=== PATIENT | female | born 1980 | race African-American/Black ===

== ENCOUNTER 2023-03-02 13:37 | Emergency (ER) | payer OTHER, SELFPAY ==
[2023-03-02 13:58] VITALS: BP 160/100; PULSE 94; RESP 20; TEMP 36.6; O2SAT 100
--- NOTE | 2023-03-02 14:56 | ED.FEMALEGU ---
HPI - Female Genitourinary General Chief complaint: Urogenital-Female Stated complaint: burning upon urination, flank pain Time Seen by Provider: 03/02/23 14:54 Source: patient Mode of arrival: ambulatory Limitations: no limitations History of Present Illness HPI Narrative: Patient is a 42 year old [id number] (miscarriage)-2 female who presents initially with report of dysuria and flank pain at triage but whom, upon beign roomed, states these are not her symptoms. She was recently treated for a yeast infection and BV, daignosed 2 weeks ago and seen by her ObGyn Dr Munoz. She completed PO metronidazole o nMonday. She attempted to insert Monostat last evening due to vulvar iching and burning however it was too painful and swollen. She denies any vaginal bleeding, vaginal discharge, history of STIs, abdominal pain. LBM was this morning; borderline constipation. She is sexually active with the same male partner of 23 years. She notes that the swelling of her mons pubis and vulva has led to a discharge. No new soaps/creams/underwear; does not douche. Related Data Home Medications Medication Instructions Recorded Confirmed amlodipine 10 mg tablet mg PO 02/03/23 02/03/23 Allergies Allergy/AdvReac Type Severity Reaction Status Date / Time banana Allergy Severe Anaphylactic Verified 03/02/23 14:17 Shock shrimp Allergy Severe Anaphylactic Verified 03/02/23 14:17 Shock PMFSH Past Medical History Medical History Asthma Bacterial vaginosis HTN (hypertension) Migraine Yeast infection Surgical History Surgical History History of Social History Social History (Updated 03/03/23 @ 02:07 by Vernell Grady MD) Smoking status: Never smoker Alcohol intake: current Alcohol use details: occasional Substance use: never Lack of Transportation: No Lack of Food: Never True Current Housing: I Have Housing Concerned About Future Housing: No Difficulty Paying Gas/Electric Bills: No Difficulty Paying for Meds: No Currently Unemployed: No Education: Trade/Vocational Certificate Difficulty w/ Childcare or Family Care: No Living arrangements: with family Additional living arrangements comments: male partner; 2 living children Occupation/Education: occupation Gender identity (if verbalized by the patient): Female Exam Narrative: GENERAL: Well-appearing, well-nourished, and in no acute distress. HEAD: Normocephalic, atraumatic. EYES: Non injected, non icteric ENT: Nares clear, no rhinorrhea or epistaxis. NECK: Supple. CHEST: Speakign in full sentences. No respiratory distress. HEART: Regular rate and rhythm. . ABDOMEN: Soft, nondistended. : swelling of mons pubis without erythea. External genitalia appears markedly swollen, right labia majora greater than left but both erythematous and edeamtous without distinct induration. No distinct cyst/lesion (does not remain in Bartholin gland territory). Vaginal vault swollen as well such that insertion of small speculum causes great discomfort. Bimanual attempted but unable to feel to cervix without causing discomfort. No vaginal discharge appreciated. No lesions/vesicles. EXTREMITIES: Normal range of motion. No edema. SKIN: Warm, dry, no rash. NEURO: No focal deficits. Alert and oriented x3. PSYCH: Normal mood and affect. Course Vital Signs Vital signs: Vital Signs Temperature 97.9 F 03/02/23 13:58 Pulse Rate 94 03/02/23 13:58 Respiratory Rate 20 03/02/23 13:58 Blood Pressure 160/100 H 03/02/23 13:58 Pulse Oximetry 100 03/02/23 13:58 Oxygen Delivery Room Air 03/02/23 13:58 Temperature 97.6 F 03/02/23 16:27 Pulse Rate 87 03/02/23 16:27 Respiratory Rate 18 03/02/23 16:27 Blood Pressure 139/78 03/02/23 16:27 Pulse Oximetry 97 03/02/23 16:27 Oxygen Delivery Room Air
[2023-03-02 15:48] LABS: Add Urine Microscopic? YES; Appearance Urine Cloudy (Clear); Bacteria Urine 2+ /hpf; Bilirubin Urine Negative (Negative); Blood Urine 2+ (Negative); Color Urine Dark Yellow (Yellow); Glucose Urine UA Negative (Negative); Ketones Urine Trace mg/dL (Negative); Leukocyte Esterase Ur 1+ LEU/UL (Negative); Need Manual Microscopic Reviewed; Nitrate Urine Negative (Negative); Protein Urine 1+ mg/dL (Negative); Specific Grav Ur 1.025 (1.001-1.035); Squamous Epithelial Cell Urine Many /hpf (Few)
[2023-03-02] MEDS: SULFAMETHOXAZOLE/TRIMETHOPRIM 800/160 MG DS TABLET 1 TAB PO (16:07)
[2023-03-02 16:27] VITALS: BP 139/78; PULSE 87; RESP 18; TEMP 36.4; O2SAT 97
== END 2023-03-02 16:30 | disposition home or self-care (01) ==
PROVIDERS: Physician Assistant; Emergency Provider Student in an Organized Health Care Education/Training Program
DX: N76.0 Acute vaginitis (principal); N39.0 Urinary tract infection, site not specified; I10 Essential (primary) hypertension
CPT/HCPCS: 81001; 81025; 87086; 87088; 99284; A9270

== ENCOUNTER 2023-03-13 08:37 | Emergency (ER) | payer OTHER, SELFPAY ==
[2023-03-13 08:40] VITALS: BP 151/94; PULSE 85; RESP 16; TEMP 36.4; O2SAT 100
[2023-03-13 08:48] LABS: Glucose Point of Care 85 mg/dl (65-105)
--- NOTE | 2023-03-13 11:40 | ED.GENADULT ---
HPI - General Adult General Chief complaint: Recheck/Abnormal Lab/Rx Stated complaint: mult. complaints, thinks she might be diabetic Time Seen by Provider: 03/13/23 11:31 History of Present Illness HPI narrative: Patient is a 42-year-old female who presents to the emergency department this morning due to concern for new onset diabetes. Patient states that she has been having some itching to her bilateral lower extremity and wants to be evaluated for diabetes since her mother is a diabetic and has similar symptoms. Patient also states that she has been having recurrent yeast infections which she believes is a sign of diabetes despite being treated for it multiple times. Patient states that she made an appointment with her primary care physician, however, her appointment is not until April. Patient denies any chest pain, shortness of breath, nausea, vomiting, abdominal pain, dysuria, hematuria, constipation, diarrhea, melena, hematochezia, fevers or chills. Patient also denies any headaches, dizziness, lightheadedness, blurry visions and focal weakness. There are no other modifying, alleviating, or precipitating factors at this time. Related Data Home Medications Medication Instructions Recorded Confirmed amlodipine 10 mg tablet mg PO 02/03/23 02/03/23 Allergies Allergy/AdvReac Type Severity Reaction Status Date / Time banana Allergy Severe Anaphylactic Verified 03/02/23 14:17 Shock shrimp Allergy Severe Anaphylactic Verified 03/02/23 14:17 Shock Review of Systems Review of Systems: All systems are reviewed and are negative unless stated otherwise in the HPI. [facility] Past Medical History Medical History Asthma Bacterial vaginosis HTN (hypertension) Migraine Yeast infection Surgical History Surgical History History of Social History Social History Smoking status: Never smoker Alcohol intake: current Alcohol use details: occasional Substance use: never Lack of Transportation: No Lack of Food: Never True Current Housing: I Have Housing Concerned About Future Housing: No Difficulty Paying Gas/Electric Bills: No Difficulty Paying for Meds: No Currently Unemployed: No Education: Trade/Vocational Certificate Difficulty w/ Childcare or Family Care: No Living arrangements: with family Additional living arrangements comments: male partner; 2 living children Occupation/Education: occupation Gender identity (if verbalized by the patient): Female Exam Narrative: General: Alert, awake, afebrile, in no acute distress. HEENT: PERRL, no rhinorrhea, no post nasal drip, oropharynx clear. Neck: Trachea midline, no JVD, no lymphadenopathy. Cardiovascular: Regular rate and rhythm, no murmurs, rubs or gallops, no peripheral edema. Respiratory: Clear to auscultation bilaterally, no tachypnea, no wheezing, no rhonchi, no rubs, no respiratory distress. Abdomen: Soft, nontender, nondistended, no rebound, no guarding, no peritoneal signs. Musculoskeletal: No joint swelling or deformity, normal muscle tone. Skin: No rashes or petechia, no signs of infection. Psychiatric: Alert and oriented, normal behavior and judgment for situation. Neurological: Alert and oriented to person, place, and time. Follows all commands. No focal deficits, speech is clear and fluent. Course Vital Signs Vital signs: Vital Signs Temperature 97.6 F 03/13/23 08:40 Pulse Rate 85 03/13/23 08:40 Respiratory Rate 16 03/13/23 08:40 Blood Pressure 151/94 H 03/13/23 08:40 Pulse Oximetry 100 03/13/23 08:40 Temperature 97.6 F 03/13/23 08:40 Pulse Rate 85 03/13/23 08:40 Respiratory Rate 16 03/13/23 08:40 Blood Pressure 151/94 H 03/13/23 08:40 Pulse Oximetry 100 03/13/23 08:40 Medical Decision Renée
[2023-03-13 11:46] LABS: Basophils Absolute Auto 0.1 K/mm3 (0.0-0.1); Eosinophils Absolute Auto 0.2 K/mm3 (0-0.3); Eosinophils Percent Auto 3.6 % (0-4.4); Hematocrit 41.8 % (37.0-47.0); Hemoglobin 13.5 g/dL (12.0-15.0); Immature Granulocyte Absolute 0.01 K/mm3 (0.00-0.031); Immature Granulocyte Percent A 0.2 % (0-0.5); Lymphocytes Percent Auto 45.4 % (18.3-44.2); Mean Corpuscular HGB Conc 32.3 g/dl (32-36); Mean Corpuscular Hemoglobin 30.4 pg (26-34); Mean Corpuscular Volume 94.1 fl (80-100); Mean Platelet Volume 8.9 fl (7.4-10.4); Monocytes Absolute Auto 0.2 K/mm3 (0.1-0.6); Monocytes Percent Auto 4.5 % (2.6-8.5); Neutrophils Absolute Auto 2.3 K/mm3 (1.3-6.7); Neutrophils Percent Auto 45.3 % (45.5-73.1); Platelet Count Result 326 k/mm3 (150-375); Red Blood Count 4.44 M/mm3 (4.2-5.4); Red Cell Distribution Width 11.9 % (11.5-14.5); White Blood Count 5.1 K/mm3 (4.5-10.0)
[2023-03-13 11:59] LABS: Alanine Aminotransferase 21 U/L (6-35); Albumin Level 4.2 g/dL (3.5-5.1); Alkaline Phosphatase 97 U/L (38-126); Anion Gap 8 mmol/L (8-16); Aspartate Amino Transferase 25 U/L (14-36); Bilirubin,Total 0.5 mg/dL (0.2-1.3); Blood Urea Nitrogen 6 mg/dL (7-17); Carbon Dioxide 26 mmol/L (22-30); Chloride 105 mmol/L (98-107); Estimated CRCL calculation 134 ml/min; Estimated Glomerular Filt Rate > 60; Glucose 83 mg/dL (65-110); Magnesium 1.9 mg/dL (1.6-2.3); Potassium 4.1 mmol/L (3.4-5.0); Sodium 139 mmol/L (137-145)
[2023-03-13 13:08] LABS: Hemoglobin A1C 5.8 % (<5.7)
== END 2023-03-13 13:45 | disposition home or self-care (01) ==
PROVIDERS: Emergency Provider Emergency Medicine
DX: R73.03 Prediabetes (principal); B37.31 Acute candidiasis of vulva and vagina; I10 Essential (primary) hypertension; J45.909 Unspecified asthma, uncomplicated
CPT/HCPCS: 36415; 80053; 82948; 83036; 83735; 85025; 99283

== ENCOUNTER 2023-04-09 08:48 | Emergency (ER) | payer OTHER, SELFPAY ==
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
[2023-04-09 09:00] VITALS: BP 148/99; PULSE 80; RESP 16; TEMP 36.6; O2SAT 100
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
[2023-04-09 10:11] LABS: Basophils Percent Auto 0.6 % (0.2-1.2); Eosinophils Absolute Auto 0.2 K/mm3 (0-0.3); Eosinophils Percent Auto 3.2 % (0-4.4); Hematocrit 45.5 % (37.0-47.0); Hemoglobin 14.5 g/dL (12.0-15.0); Immature Granulocyte Absolute 0.02 K/mm3 (0.00-0.031); Immature Granulocyte Percent A 0.3 % (0-0.5); Lymphocytes Absolute Auto 2.02 K/mm3 (0.9-3.2); Lymphocytes Percent Auto 28.3 % (18.3-44.2); Mean Corpuscular HGB Conc 31.9 g/dl (32-36); Mean Corpuscular Volume 94.2 fl (80-100); Mean Platelet Volume 9.1 fl (7.4-10.4); Monocytes Absolute Auto 0.3 K/mm3 (0.1-0.6); Monocytes Percent Auto 4.6 % (2.6-8.5); Neutrophils Absolute Auto 4.5 K/mm3 (1.3-6.7); Platelet Count Result 335 k/mm3 (150-375); Red Blood Count 4.83 M/mm3 (4.2-5.4); Red Cell Distribution Width 12.3 % (11.5-14.5); White Blood Count 7.1 K/mm3 (4.5-10.0)
[2023-04-09] MEDS: ACETAMINOPHEN 500 MG TABLET 1000 MG PO (10:20)
[2023-04-09] MEDS: CYCLOBENZAPRINE HCL 10 MG TABLET PO (10:21)
[2023-04-09 10:27] LABS: Anion Gap 4 mmol/L (8-16); Blood Urea Nitrogen 7 mg/dL (7-17); Calcium 9.2 mg/dL (8.4-10.2); Carbon Dioxide 27 mmol/L (22-30); Chloride 107 mmol/L (98-107); Estimated CRCL calculation 136 ml/min; Estimated Glomerular Filt Rate > 60; Glucose 98 mg/dL (65-110); Potassium 4.1 mmol/L (3.4-5.0); Sodium 138 mmol/L (137-145)
[2023-04-09 10:30] LABS: SPREG INTERNAL CONTROL Positive; Serum Qual hCG Negative
[2023-04-09 11:10] VITALS: O2SAT 100
[2023-04-09 11:11] VITALS: BP 147/101; O2SAT 100
[2023-04-09 11:12] VITALS: O2SAT 100
[2023-04-09 11:57] VITALS: BP 132/94; PULSE 79; RESP 18; O2SAT 100
== END 2023-04-09 11:59 | disposition home or self-care (01) ==
PROVIDERS: Emergency Provider Physician Assistant
DX: S29.011A Strain of muscle and tendon of front wall of thorax, initial encounter (principal); S70.01XA Contusion of right hip, initial encounter; S39.012A Strain of muscle, fascia and tendon of lower back, initial encounter; K76.9 Liver disease, unspecified; D25.9 Leiomyoma of uterus, unspecified; I10 Essential (primary) hypertension; J45.909 Unspecified asthma, uncomplicated; V43.52XA Car driver injured in collision with other type car in traffic accident, initial encounter
CPT/HCPCS: 36415; 71260; 72128; 72131; 73521; 80048; 84703; 85025; 99284; A9270; Q9967

== ENCOUNTER 2024-05-10 13:29 | Emergency (ER) | payer OTHER, SELFPAY ==
--- NOTE | ~2024-05-10 | CT_ITS ---
CT brain wo con Ordering provider: Jimena Ferris APRN History: 43 years Female with . vision changes . Comparison: None. Technique: CT of the head without contrast. Radiation reduction technique utilized The dose-length product was 605.33 mGy-cm. FINDINGS: BRAIN PARENCHYMA AND CSF SPACES: No midline shift, mass effect or hemorrhage. The brain parenchyma a nd CSF spaces are otherwise normal. VISUALIZED PARANASAL SINUSES: Well aerated. MASTOIDS: Well aerated. BONES: The bones appear intact. SOFT TISSUES: Visualized nasopharynx is normal. Superficial soft tissues are normal. IMPRESSION: No acute intracranial findings. Reviewed, dictated and finalized at location A.
--- NOTE | ~2024-05-10 | XR_ITS ---
XR chest 2V Ordering provider: Emile Webber MD History: 43 years Female with . chest pain, MIDSTERNAL CHEST PAIN . Comparison: October 27, 2018 FINDINGS: MEDIASTINUM: The cardiac silhouette is not enlarged. LUNGS: No infiltrates, effusions or pneumothorax. OTHER: No free air under the diaphragm. Degenerative changes of the spine. IMPRESSION: No acute cardiopulmonary pathology. Reviewed, dictated and finalized at location A.
--- NOTE | 2024-05-10 13:30 | ECG_ITS ---
Test Date: 2024-05-10 13:36:08 Measurements Intervals [place] Rate: 101 P: 34 PA: 142 QRS: 9 QRSD: 85 T: 28 QT: 351 QTc: 456 Interpretive Statements SINUS TACHYCARDIA POSSIBLE LEFT ATRIAL ENLARGEMENT [-0.1mV P WAVE IN V1/V2] No previous ECG available for comparison Electronically Signed On 05-11-2024 16:37:31 CDT by Lana Jackson M.D.
--- NOTE | 2024-05-10 13:43 | ED_ITS ---
HPI - Chest Pain General Chief Complaint: Chest Pain Stated Complaint: chest pain, L eye vision is blurry Time Seen by Provider: 05/10/24 13:40 Focused HPI: Patient is a 42-year-old female who presents to the ER with left eye blurriness and midsternal chest pain. She reports her vision changes began this morning around 8:00 a.m. chest pain started shortly afterwards. Patient endorses a history of asthma and high blood pressure. She reports she work when her symptoms started so the other nurses checked her blood sugar and it was high. Patient denies any headaches, shortness of breath, pain, neck stiffness, recent fevers. GENERAL: Well-appearing, well-nourished, and in no acute distress. HEAD: Normocephalic, atraumatic. CHEST: Clear to auscultation. ?No respiratory distress. HEART: Tachycardia, regular rhythm NEURO: ?Alert and oriented x3. Patient screened in triage and initial orders placed.? ?Additional care and disposition to be based upon?diagnostic testing and treatment. Related Data Home Medications ?Medication ?Instructions ?Recorded ?Confirmed ?Last Taken ?Type amlodipine 10 mg tablet mg PO 02/03/23 07/18/23 Unknown History Allergies Allergy/AdvReac Type Severity Reaction Status Date / Time banana Allergy Severe Anaphylactic Verified 07/18/23 11:04 Shock shrimp Allergy Severe Anaphylactic Verified 07/18/23 11:04 Shock PMFSH Past Medical History Medical History (Updated 05/11/24 @ 11:28 by Jimena Ferris APRN) Encounter for screening examination for sexually transmitted disease Screening mammogram, encounter for Yeast infection Bacterial vaginosis HTN (hypertension) Asthma Migraine Surgical History Surgical History History of Social History Social History (Updated 07/18/23 @ 11:07 by SHAW Meehan) Smoking status: Never smoker Second hand tobacco smoke exposure: Yes Alcohol intake: current Alcohol use details: occasional 1 a month Substance use: never Substance use type: does not use Do You Feel Safe in your Home?: Yes Lack of Transportation: No Lack of Food: Never True Current Housing: I Have Housing Concerned About Future Housing: No Difficulty Paying Gas/Electric Bills: No Difficulty Paying for Meds: No Currently Unemployed: No Education: Trade/Vocational Certificate Difficulty w/ Childcare or Family Care: No Living arrangements: with family Additional living arrangements comments: male partner; 2 living children Occupation/Education: occupation 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 Gender identity (if verbalized by the patient): Female Sexual Orientation (if Verbalized by the Patient): Straight or Heterosexual Course Vital Signs Vital signs: Vital Signs Temperature 36.6 C 05/10/24 14:26 Pulse Rate 106 H 05/10/24 14:26 Respiratory Rate 20 05/10/24 14:26 Blood Pressure 163/112 H 05/10/24 14:26 Pulse Oximetry 100 05/10/24 14:26 Temperature 36.8 C 05/10/24 17:37 Pulse Rate 84 05/10/24 17:37 Respiratory Rate 18 05/10/24 17:37 Blood Pressure 172/95 H 05/10/24 17:37 Pulse Oximetry 100 05/10/24 17:37 MDM - Chest Pain Lab Data 05/10/24 13:47 05/10/24 13:47 Labs: Lab Results 05/10/24 05/10/24 Range/Units 13:47 13:47 WBC 6.2 (4.5-10.0) K/mm3 RBC 4.62 (4.2-5.4) M/mm3 Hgb 14.3 (12.0-15.0) g/dL Hct 43.2 (37.0-47.0) % MCV 93.5 (80-100) fl MCH 31.0 (26-34) pg MCHC 33.1 (32-36) g/dl RDW 12.7 (11.5-14.5) % Plt Count 332 (150-375) k/mm3 MPV 9.0 (7.4-10.4) fl Immature Gran % (Auto) 0.0 (0-0.5) % Neut % (Auto) 49.3 (45.5-73.1) % Lymph % (Auto) 44.7 H (18.3-44.2) % [place] % (Auto) 3.4 (2.6-8.5) % Eos % (Auto) 2.1 (0-4.4) % Baso % (Auto) 0.5 (0.2-1.2) % Lymph # (Auto) 2.77 (0.9-3.2) K/mm3 [place] # (Auto) 0.2 (0.1-0.6) K/mm3 Eos # (Auto) 0.1 (0-0.3) K/mm3 Baso # (Auto) 0.0 (0.0-0.1) K/mm3 Abs Immat Gran (auto) 0.00 (0.00-0.031) K/mm3 Absolute Neuts (auto) 3.1 (1.3-6.7) K/mm3 Absolute Nucleated RBC 0.000 (0.0-0.012) K/mm3 Nucleated RBC % 0.0 (0.0-0.2) % PT 13.4 (11.1-14.7) Seconds INR 1.0 APTT 23.5 (22.3-36.8) Seconds Sodium 139 (137-145) mmol/L Potassium 3.8 (3.4-5.0) mmol/L Chloride 105 (98-107) mmol/L Carbon Dioxide 24 (22-30) mmol/L Anion Gap 10 (4-12) mmol/L BUN 9 (7-17) mg/dL Creatinine 0.74 (0.7-1.0) mg/dL Estim Creat Clear Calc Not Reportable Estimated GFR > 60 (59 - ) Glucose 135 H (65-110) mg/dL Calcium 9.1 (8.4-10.2) mg/dL Total Bilirubin 0.5 (0.2-1.3) mg/dL AST 28 (14-36) U/L ALT 27 (6-35) U/L Alkaline Phosphatase 103 (38-126) U/L Troponin I < 0.012 (0.000-0.034) ng/mL NT-Pro-B Natriuret Pep < 20 Cancelled (19.9-100) pg/mL Total Protein 8.0 (6.3-8.2) g/dL Albumin 4.4 (3.5-5.1) g/dL Lipase 85 (23-300) U/L Discharge Plan Discharge Clinical Impression: Atypical chest pain Patient Disposition: Elopement After Seen by Prov Patient Language: Mexican Prescriptions: No Action amlodipine 10 mg tablet PO fluconazole 150 mg tablet 150 mg PO Q72H Qty: 2 0RF ibuprofen 800 mg tablet 800 mg PO TID PRN (Reason: pain) Qty: 60 1RF Follow-up/Referrals: UNKNOWN,DOCTOR [Primary Care Provider] -
[2024-05-10 14:02] LABS: Basophils Percent Auto 0.5 % (0.2-1.2); Eosinophils Absolute Auto 0.1 K/mm3 (0-0.3); Eosinophils Percent Auto 2.1 % (0-4.4); Hematocrit 43.2 % (37.0-47.0); Hemoglobin 14.3 g/dL (12.0-15.0); Lymphocytes Absolute Auto 2.77 K/mm3 (0.9-3.2); Lymphocytes Percent Auto 44.7 % (18.3-44.2); Mean Corpuscular HGB Conc 33.1 g/dl (32-36); Mean Corpuscular Volume 93.5 fl (80-100); Monocytes Absolute Auto 0.2 K/mm3 (0.1-0.6); Monocytes Percent Auto 3.4 % (2.6-8.5); Neutrophils Absolute Auto 3.1 K/mm3 (1.3-6.7); Neutrophils Percent Auto 49.3 % (45.5-73.1); Platelet Count Result 332 k/mm3 (150-375); Red Blood Count 4.62 M/mm3 (4.2-5.4); Red Cell Distribution Width 12.7 % (11.5-14.5); White Blood Count 6.2 K/mm3 (4.5-10.0)
[2024-05-10 14:08] LABS: Prothrombin Time 13.4 Seconds (11.1-14.7)
[2024-05-10 14:09] LABS: Partial Thromboplastin Time 23.5 Seconds (22.3-36.8)
[2024-05-10 14:22] LABS: Alanine Aminotransferase 27 U/L (6-35); Albumin Level 4.4 g/dL (3.5-5.1); Alkaline Phosphatase 103 U/L (38-126); Anion Gap 10 mmol/L (4-12); Aspartate Amino Transferase 28 U/L (14-36); Bilirubin,Total 0.5 mg/dL (0.2-1.3); Blood Urea Nitrogen 9 mg/dL (7-17); Calcium 9.1 mg/dL (8.4-10.2); Carbon Dioxide 24 mmol/L (22-30); Chloride 105 mmol/L (98-107); Estimated Glomerular Filt Rate > 60; Glucose 135 mg/dL (65-110); Lipase 85 U/L (23-300); Potassium 3.8 mmol/L (3.4-5.0); Sodium 139 mmol/L (137-145)
[2024-05-10 14:26] VITALS: BP 163/112; PULSE 106; RESP 20; TEMP 36.6; O2SAT 100
[2024-05-10 14:34] LABS: NT Pro B Type Natriuretic Pept < 20 pg/mL (19.9-100); Troponin I < 0.012 ng/mL (0.000-0.034)
--- OUTSIDE RECORDS SUMMARY | 2024-05-10 15:59 | XMS_ITS | Referral Summary ---
Author Organization [facility] Address [address] [place] [address] Care Team Providers Care Hoop Expander Name Role Phone Frank Ly Primary Care Provider + Source Comments [facility]iliates and Associated Physician Practices is amultiple site organization consisting of ambulatory clinics and hospital sitesin [place], [place]. This disclosure is being madepursuant to the Care Everywhere program and may not contain all information available regarding this patient. Last updated 17.[facility] Allergies Active Allergy Reactions Criticality Noted Date Comments Banana Swelling 03/19/2016 Shellfish Allergy Swelling 03/19/2016 Medications * Be aware that medications may not be up to date on this document. Alwaysverify current medications with the patient. Medication Sig Dispensed Refills Start Date End Date Status albuterol HFA (PROVENTIL;VENTOLIN;P ROAIR) 108 (90 BASE) MCG/ACT inhaler Inhale 2 Puffs by mouth every 6 hours as needed Active acetaminophen (TYLENOL) 500 MG tablet Take 1,000 mg by mouth every 4 hours as needed for Pain or Headache Maximum allowable Acetaminophen amount = 4 Grams (4000 mg) / 24 hours. Active calcium carbonate (TUMS) 500 MG chew tablet Take 2 Tabs by mouth as needed for Heartburn Active Vit-Fe Fumarate-FA ( VITAMIN) 28-0.8 MG tablet Take 1 Tab by mouth once daily 30 Tab 11 03/24/2016 Active iron polysaccharides (NIFEREX 150) 150 MG capsule Take 1 Cap by mouth once daily 30 Cap 5 03/24/2016 Active oxyCODONE-acetaminoph en (PERCOCET) 5-325 MG tablet Take 1-2 Tabs by mouth every 4 hours as needed for Pain 60 Tab 03/24/2016 Active ibuprofen (MOTRIN) 600 MG tablet Take 1 Tab by mouth every 6 hours as needed for Pain 60 Tab 2 03/24/2016 Active docusate sodium (COLACE) 100 MG capsule Take 1 Cap by mouth 2 times daily 60 Cap 2 03/24/2016 Active amLODIPine (NORVASC) 5 MG tablet Take 1 Tab by mouth once daily 30 Tab 5 03/24/2016 Active Active Problems Problem Noted Date Diagnosed Date Preeclampsia, severe 03/19/2016 HTN in , chronic 03/19/2016 Poor growth affecting management of mother in third trimester 03/01/2016 Oligohydramnios, antepartum 01/15/2016 Marginal placenta previa 01/15/2016 Encounter for ultrasound to check growth 1 03/13/2015 Asthma 12/13/2015 Obesity affecting in second trimester 12/13/2015 Supervision of high risk in second [facility] 12/13/2015 Encounter for ultrasound 12/12/2015 Uterine leiomyoma 12/12/2015 heart rate non-reassur ing affecting management of mother Status post delivery Immunizations Name Administration Dates Next Due INFLUENZA VACCINE, QUADR. (F LUZONE; FLULAVAL; FLUARIX; AFLURIA QUADRIVALENT; 6MO+), 0.5 ML (IIV4) 03/24/2016 TDAP (7yrs+) 03/24/2016 Social History Tobacco Use Types Packs/Day Years Used Date Smoking Tobacco: Never Alcohol Use Standard Drinks/Week Comments No 0 (1 standard drink = 0.6 oz pur e alcohol) Sex and Gender Information Value Date Recorded Sex Assigned at Not on file Gender Identity Not on file Sexual Orientation Not on file Last Filed Vital Signs Vital Sign Reading Time Taken Comments Blood Pressure 140/78 03/30/2016 8:09 PM PRICING CONSULTANT Pulse 94 03/24/2016 8:30 AM PRICING CONSULTANT Temperature 37.1 C (98.7 F) 03/30/2016 8:03 PM PRICING CONSULTANT Respiratory Rate 18 03/30/2016 8:03 PM PRICING CONSULTANT Oxygen Saturation 100% 03/24/2016 4:35 AM PRICING CONSULTANT Inhaled Oxygen Concentration - - Weight 127.5 kg (281 lb) 03/30/2016 8:03 PM PRICING CONSULTANT Height 162.6 cm (5' 4 ) 03/30/2016 8:03 PM PRICING CONSULTANT Body Mass Index 48.23 03/30/2016 8:03 PM PRICING CONSULTANT Functional Status Functional Status Response Date of Assess ment Is person deaf or have serious hearing difficult y? No 03/30/2016 Is person blind or have serious difficulty seein g? No 03/30/2016 Does person have serious dif ficulty walking/climbing stairs? No 03/30/2016 Does person have difficulty dressing/bathing? No 03/30/2016 Does person have difficulty doing errands alone? No 03/30/2016 Cognitive Status Response Date of Assessm ent Does person have difficulty concentrating/remembering/making decisions? No 03/30/2016 Plan of Treatment Not on file Advance Directives * Full Code (Latest Code Status on File) Date Activated Date Inactivated Comments 03/30/2016 8:23 PM 03/30/2016 11:47 PM * Full Code Date Activated Date Inactivated Comments 03/21/2016 2:31 AM 03/24/2016 5:50 PM * Full Code Date Activated Date Inactivated Comments 03/19/2016 6:57 PM 03/21/2016 2:31 AM * Full Code Date Activated Date Inactivated Comments 03/19/2016 4:48 PM 03/19/2016 6:57 PM Care Teams Hoop Expander Relationship Specialty Start Date End Date Frank Ly [facility] [address] [place] [address] PCP - General Physician [employer] 12/05/15
--- OUTSIDE RECORDS SUMMARY | 2024-05-10 15:59 | XMS_ITS | Patient Health Summary ---
Author Organization [facility] [employer] Address [address] [place] [address] Care Team Providers Care Spiral Binder Name Role Phone Frank Ly Primary Care Provider + Note from [facility],non-owned Affiliates and Associated Physician Practices is amultiple site organization consisting of ambulatory clinics and hospital sitesin [place], [place], [place] and [place]. This disclosure is being madepursuant to the Care Everywhere program and may not contain all information available regarding this patient. Last updated 17.[facility] [employer] Allergies * Banana(Swelling) * Shellfish Allergy(Swelling) Medications * Be aware that medications may not be up to date on this document. Alwaysverify current medications with the patient. * albuterol HFA (PROVENTIL;VENTOLIN;PROAIR) 108 (90 BASE) MCG/ACT inhaler Inhale 2 Puffs by mouth every 6 hours as needed * acetaminophen (TYLENOL) 500 MG tablet Take 1,000 mg by mouth every 4 hours as needed for Pain or Headache Maximum allowable Acetaminophenamount = 4 Grams (4000 mg) / 24 hours. * calcium carbonate (TUMS) 500 MG chew tablet Take 2 Tabs by mouth as needed for Heartburn * Vit-Fe Fumarate-FA ( VITAMIN) 28-0.8 MG tablet(Started 03/24/2016) Take 1 Tab by mouth once daily 11 refills remaining * iron polysaccharides (NIFEREX 150) 150 MG capsule(Started 03/24/2016) Take 1 Cap by mouth once daily 5 refills remaining * oxyCODONE-acetaminophen (PERCOCET) 5-325 MG tablet(Started 03/24/2016) Take 1-2 Tabs by mouth every 4 hours as needed for Pain * ibuprofen (MOTRIN) 600 MG tablet(Started 03/24/2016) Take 1 Tab by mouth every 6 hours as needed for Pain 2 refills remaining * docusate sodium (COLACE) 100 MG capsule(Started 03/24/2016) Take 1 Cap by mouth 2 times daily 2 refills remaining * amLODIPine (NORVASC) 5 MG tablet(Started 03/24/2016) Take 1 Tab by mouth once daily 5 refills remaining Active Problems Problem Noted Date Diagnosed Date Preeclampsia, severe 03/19/2016 HTN in , chronic 03/19/2016 Poor growth affecting management of mother in third trimester 03/01/2016 Oligohydramnios, antepartum 01/15/2016 Marginal placenta previa 01/15/2016 Encounter for ultrasound to check growth 1 03/13/2015 Asthma 12/13/2015 Obesity affecting in second trimester 12/13/2015 Supervision of high risk in second [facility] 12/13/2015 Encounter for ultrasound 12/12/2015 Uterine leiomyoma 12/12/2015 heart rate non-reassur ing affecting management of mother Status post delivery Immunizations * INFLUENZA VACCINE, QUADR. (FLUZONE; FLULAVAL; FLUARIX; AFLURIA QUADRIVALENT; 6MO+), 0.5 ML (IIV4)(Given 03/24/2016) * TDAP (7yrs+)(Given 03/24/2016) Social History Tobacco Use Types Packs/Day Years [...] Comments Blood Pressure 140/78 03/30/2016 8:09 PM DIRECTOR SUPPLY Pulse 94 03/24/2016 8:30 AM DIRECTOR SUPPLY Temperature 37.1 C (98.7 F) 03/30/2016 8:03 PM DIRECTOR SUPPLY Respiratory Rate 18 03/30/2016 8:03 PM DIRECTOR SUPPLY Oxygen Saturation 100% 03/24/2016 4:35 AM DIRECTOR SUPPLY Inhaled Oxygen Concentration - - Weight 127.5 kg (281 lb) 03/30/2016 8:03 PM DIRECTOR SUPPLY Height 162.6 cm (5' 4 ) 03/30/2016 8:03 PM DIRECTOR SUPPLY Body Mass Index 48.23 03/30/2016 8:03 PM DIRECTOR SUPPLY Procedures * CBC W AUTO DIFFERENTIAL(Performed 03/30/2016) Performed for Status post delivery * IMAGING/RADIOLOGY/XRAY RESULTS ORDER(Performed 03/25/2016) * HGB HCT PANEL(Performed 03/24/2016) * TRANSFUSE RED BLOOD CELL LEUKOREDUCED UNIT(S)(Performed 03/23/2016) * NURSING TRANSFUSION INSTRUCTIONS(Performed 03/23/2016) * OBTAIN CONSENT FOR TRANSFUSION(Performed 03/23/2016) * PREPARE RBC LEUKOREDUCED UNIT(Performed 03/23/2016) * CBC W AUTO DIFFERENTIAL(Performed 03/23/2016) * TYPE + SCREEN PANEL(Performed 03/22/2016) * FIBRINOGEN ACTIVITY(Performed 03/22/2016) * PT PTT PANEL(Performed 03/22/2016) * CBC W AUTO DIFFERENTIAL(Performed 03/22/2016) * BASIC METABOLIC PANEL (CALCIUM TOTAL)(Performed 03/21/2016) * HGB HCT PANEL(Performed 03/21/2016) * NEURAXIAL BLOCK(Performed 03/21/2016) * CBC W AUTO DIFFERENTIAL(Performed 03/21/2016) * BLOOD GASES CORD DELMER (ISTAT)(Performed 03/20/2016) * BLOOD GASES CORD ART (ISTAT)(Performed 03/20/2016) * PATHOLOGY TISSUE EXAM (STL)(Performed 03/20/2016) Performed for Diagnosis unknown * CBC W AUTO DIFFERENTIAL(Performed 03/20/2016) * PT PTT PANEL(Performed 03/20/2016) * FIBRINOGEN ACTIVITY(Performed 03/20/2016) * PREPARE RBC LEUKOREDUCED UNIT(Performed 03/20/2016) * IP CONSULT TO NEONATOLOGY(Performed 03/20/2016) * BLOOD TYPE VERIFICATION(Performed 03/19/2016) * TYPE + SCREEN PANEL(Performed 03/19/2016) * CBC W AUTO DIFFERENTIAL(Performed 03/19/2016) Performed for Obesity affecting in second trimester ([facility]) * CHLAMYDIA + GC AMPLIFIED PROBE(Performed 03/19/2016) Performed for Obesity affecting in second trimester ([facility]) * CULTURE STREP B(Performed 03/19/2016) Performed for Obesity affecting in second trimester ([facility]) * URINALYSIS REFLEX MICROSCOPIC REFLEX CULTURE(Performed 03/19/2016) Performed for Obesity affecting in second trimester ([facility]) * PROTEIN CREATININE RATIO URINE RANDOM PNL(Performed 03/19/2016) Performed for Obesity affecting in second trimester ([facility]) * CULTURE URINE(Performed 03/19/2016) Performed for Supervision of high risk in second trimester ([facility]) * COMPREHENSIVE METABOLIC PANEL(Performed 03/19/2016) Performed for Obesity affecting in second trimester ([facility]) * BIOPHYSICAL PROFILE W NST(Performed 03/19/2016) Performed for Poor growth affecting management of mother in third trimester, not applicable or unspecified fetus (HCC), Supervision of high risk in second trimester ([facility]) * SONOGRAM - COMPLETE(Performed 03/01/2016) Performed for Supervision of high risk in second trimester ([facility]), Oligohydramnios, antepartum, second trimester, not applicable or unspecified fetus (HCC), Obesity affecting in second trimester (HCC), Marginal placenta previa (HCC), Uterine leiomyoma, unspecified location * SONOGRAM - COMPLETE(Performed 02/02/2016) Performed for Encounter for ultrasound to check growth ([facility]), Supervision of high risk in second trimester (HCC), Oligohydramnios, antepartum, second trimester, not applicable or unspecified fetus (HCC), Marginal placenta previa (HCC), Obesity affecting in second trimester(HCC), Uterine leiomyoma, unspecified location * SONOGRAM - COMPLETE(Performed 01/12/2016) Performed for Encounter for ultrasound to check growth (HCC), Supervision of high risk in second trimester ([facility]) * SONOGRAM - COMPLETE(Performed 12/13/2015) Performed for Encounter for ultrasound ([facility]), Uterine leiomyoma, unspecified location * SECTION (EMERGENCY) Results * (ABNORMAL) CBC W AUTO DIFFERENTIAL (03/30/2016 9:06 PM DIRECTOR SUPPLY) Only the most recent of6 resultswithin the time period is included. WBC 13.7(H) 4.4 - 10.7 x10E9/L 03/30/2016 9:13 PM DIRECTOR SUPPLY [facility] WBC Corrected x10E9/L 03/30/2016 9:13 PM DIRECTOR SUPPLY [facility] RBC 3.00(L) 3.80 - 5.20 x10E12/L 03/30/2016 9:13 PM DIRECTOR SUPPLY [facility] Hemoglobin 9.2(L) 12.0 - 15.6 gm/dL 03/30/2016 9:13 PM [facility] Hematocrit 27.7(L) 35.9 - 45.5 % 03/30/2016 9:13 PM [facility] MCV 92.3 80.7 - 98.3 fl 03/30/2016 9:13 PM [facility] MCH 30.7 26.7 - 34.0 pg 03/30/2016 9:13 PM [facility] MCHC 33.2 30.8 - 35.9 gm/dL 03/30/2016 9:13 PM [facility] Platelet Count 409 153 - 416 x10E9/L 03/30/2016 9:13 PM [facility] RDW-CV 14.1 12.1 - 14.9 % 03/30/2016 9:13 PM [facility] MPV 8.9(L) 9.4 - 12.9 fl 03/30/2016 9:13 PM [facility] Neutrophils % 71.8 44.0 - 73.0 % 03/30/2016 9:13 PM [facility] Lymphocytes % 20.3 20.0 - 43.0 % 03/30/2016 9:13 PM [facility] Monocytes % 6.2 5.0 - 13.0 % 03/30/2016 9:13 PM [facility] Eosinophils % 1.0 0.0 - 6.0 % 03/30/2016 9:13 PM [facility] Basophils % 0.2 0.0 - 2.0 % 03/30/2016 9:13 PM [facility] Immature Granulocytes 0.5 0 - 1 % 03/30/2016 9:13 PM [facility] Neutrophil Absolute 9.80(H) 2.01 - 7.14 x10E9/L 03/30/2016 9:13 PM [facility] Lymphocytes Absolute 2.77 1.07 - 3.94 x10E9/L 03/30/2016 9:13 PM [facility] Monocytes Absolute 0.85 0.26 - 1.07 x10E9/L 03/30/2016 9:13 PM [facility] Eosinophils Absolute 0.13 0 - 0.47 x10E9/L 03/30/2016 9:13 PM [facility] Basophils Absolute 0.03 0 - 0.08 x10E9/L 03/30/2016 9:13 PM DIRECTOR SUPPLY [facility] Immature Granulocytes Absolute 0.07(H) 0.00 - 0.06 x10E9/L 03/30/2016 9:13 PM DIRECTOR SUPPLY [facility] nRBC Auto 0 /100 WBC 03/30/2016 9:13 PM DIRECTOR SUPPLY [facility] Blood BLOOD SPECIMEN / Unknown Venipuncture / Unknown 03/30/2016 9:06 PM DIRECTOR SUPPLY 03/30/2016 9:09 PM DIRECTOR SUPPLY Faby Sellers MD LAB - HEMATOLOGY ORD ERABLES Performing Organization Address [facility]/ZIP Co de Phone Number [facility] [address] [place] [address] * IMAGING/RADIOLOGY/XRAY RESULTS ORDER (03/25/2016 9:51 PM DIRECTOR SUPPLY) Anatomical Region Laterality Modality Other Narrative 03/25/2016 9:51 PM DIRECTOR SUPPLY Ordered by an unspecified provider. Scanned Document IMAGING * (ABNORMAL) HGB HCT PANEL (03/24/2016 4:36 AM DIRECTOR SUPPLY) Only the most recent of2 resultswithin the time period is included. Hemoglobin 8.6(L) 12.0 - 15.6 gm/dL 03/24/2016 4:59 AM DIRECTOR SUPPLY [facility] Hematocrit 25.3(L) 35.9 - 45.5 % 03/24/2016 4:59 AM [facility] Blood BLOOD SPECIMEN / Unknown Venipuncture / Unknown 03/24/2016 4:36 AM DIRECTOR SUPPLY 03/24/2016 4:46 AM DIRECTOR SUPPLY Mary Hamilton MD LAB - HEMATOLOGY OR DERABLES Performing Organization Address [facility]/ZIP Co de Phone Number [facility] [address] [place] [phone] * TRANSFUSE RED BLOOD CELL UNIT(S) (03/23/2016 11:23 PM DIRECTOR SUPPLY) Noemy Peña MD NURSING - BLOOD PRO D TRANSFUSION * TRANSFUSE RED BLOOD CELL UNIT(S) (03/23/2016 5:48 PM DIRECTOR SUPPLY) Noemy Peña MD NURSING - BLOOD PRO D TRANSFUSION * PREPARE (CROSSMATCH) RBC UNIT(S), 2 Units (03/23/2016 12:00 PM DIRECTOR SUPPLY) Only the most recent of2 resultswithin the time period is included. Product Code P4433R65 [facility] Unit Donor # [id number] S [facility] ABO Donor Type AB [facility] Rh Type Unit POS [facility] Crossmatch Interpretation Compatible [facility] Unit Status Transfd [facility] ABO Rh Type Unit [facility] Donor Unit Expiration Date [facility] Blood Type Barcode [address] [facility] Product Code R3422H64 [facility] Unit Donor # [id number] S [facility] ABO Donor Type AB [facility] Rh Type Unit POS [facility] Crossmatch Interpretation Compatible [facility] Unit Status Transfd [facility] B[facility] OD [facility]ANK LAB ABO Rh Type Unit [facility] Donor Unit Expiration Date [facility] Blood Type Barcode 8400 [facility] Blood Bank BLOOD SPECIMEN / Unknown 03/23/2016 12:00 PM DIRECTOR SUPPLY Noemy Peña MD LAB - BLOOD BANK OR DERABLES [facility] [address] * TYPE + SCREEN PANEL (03/22/2016 1:56 AM DIRECTOR SUPPLY) Only the most recent of2 resultswithin the time period is included. ABO AB 03/22/2016 3:27 AM DIRECTOR SUPPLY [facility] Rh Type Positive 03/22/2016 3:27 AM DIRECTOR SUPPLY [facility] Comment:History check perfor med. No retype required. Antibody Screen Negative 03/22/2016 3:27 AM DIRECTOR SUPPLY [facility] Blood Bank BLOOD SPECIMEN / Unknown Venipuncture / Unknown 03/22/2016 1:56 AM DIRECTOR SUPPLY 03/22/2016 2:01 AM DIRECTOR SUPPLY Sera Juarez MD LAB - BLOOD BANK ORD ERABLES Performing Organization Address [facility]/ZIP Co de Phone Number [facility] [address] [place] [address] * (ABNORMAL) PT PTT PANEL (03/22/2016 1:56 AM DIRECTOR SUPPLY) Only the most recent of2 resultswithin the time period is included. PT <9.5(L) 9.5 - 11.6 sec 03/22/2016 2:19 AM DIRECTOR SUPPLY [facility] INR 0.9 0.9 - 1.1 03/22/2016 2:19 AM [facility] PTT 25.1 21.0 - 32.0 sec 03/22/2016 2:19 AM DIRECTOR SUPPLY [facility] Blood BLOOD SPECIMEN / Unknown Venipuncture / Unknown 03/22/2016 1:56 AM DIRECTOR SUPPLY 03/22/2016 2:01 AM DIRECTOR SUPPLY Narrative [facility] - 03/22/2016 2:19 AM DIRECTOR SUPPLY Conventional Warfarin Anticoagulant Therapy: INR Reference Range: 2.0-3.0 Intensive Warfarin Anticoagulant Therapy: INR Reference Range: 2.5-3.5 Heparin Therapeutic Range for PTT: 47.7 - 68.6 seconds. Imtiaz Fulton MD LAB - COAGULATION OR DERABLES Performing Organization Address [facility] Co de Phone Number [facility] [address] [place] [address] * (ABNORMAL) FIBRINOGEN ACTIVITY (03/22/2016 1:56 AM DIRECTOR SUPPLY) Only the most recent of2 resultswithin the time period is included. Fibrinogen 424(H) 200 - 400 mg/dL 03/22/2016 2:18 AM DIRECTOR SUPPLY [facility] Blood BLOOD SPECIMEN / Unknown Venipuncture / Unknown 03/22/2016 1:56 AM DIRECTOR SUPPLY 03/22/2016 2:01 AM DIRECTOR SUPPLY Imtiaz Fulton MD LAB - COAGULATION OR DERABLES Performing Organization Address [facility] Co de Phone Number [facility] [address] [place] [address] * (ABNORMAL) BASIC METABOLIC PANEL (CALCIUM TOTAL) (03/21/2016 11:38 PM DIRECTOR SUPPLY) Glucose 107(H) 74 - 106 mg/dL 03/22/2016 12:18 AM [facility] Sodium 134(L) 136 - 145 mmol/L 03/22/2016 12:18 AM [facility] Potassium 4.8 3.5 - 5.1 mmol/L 03/22/2016 12:18 AM [facility] Chloride 103 98 - 107 mmol/L 03/22/2016 12:18 AM [facility] CO2 21(L) 22 - 31 mmol/L 03/22/2016 12:18 AM [facility] Calcium 6.6(LL) 8.5 - 10.1 mg/dL 03/22/2016 12:18 AM [facility] Anion Gap 10 8 - 16 mmol/L 03/22/2016 12:18 AM [facility] BUN 14 7 - 21 mg/dL 03/22/2016 12:18 AM [facility] Creatinine 0.91 0.50 - 1.30 mg/dL 03/22/2016 12:18 AM [facility] eGFR by MDRD >60 >60 mL/min/1.7 3m2 03/22/2016 12:18 AM [facility] eGFR by MDRD >60 >60 mL/min/1.7 3m2 03/22/2016 12:18 AM [facility] Blood BLOOD SPECIMEN / Unknown Venipuncture / Unknown 03/21/2016 11:38 PM DIRECTOR SUPPLY 03/21/2016 11:59 PM DIRECTOR SUPPLY Maral Barnes MD LAB - CHEMISTRY TIANA VAZ [facility] ([place], [place]) Organization Address City/State/ZIP Co de Phone Number [facility] [address] [place] [address] * NEURAXIAL BLOCK (03/21/2016 6:37 AM DIRECTOR SUPPLY) Narrative Arturo Mcguire DO - 03/21/2016 6:37 AM DIRECTOR SUPPLY Keyla Martinez APRN-JADA 03/20/2016 10:46 PM NEURAXIAL BLOCK Patient Location: OB Pre Procedure Indication: surgical anesthesia Anticoagulation /Antithrombosis Status Confirmed: Yes Preanesthetic Checklist: patient identified, IV checked, site marked, risks and benefits discussed, surgical consent verified, monitors and equipment checked, pre-op evaluation done, timeout performed, informed consent obtained and questions answered / anesthesia plan accepted Monitors: BP and Pulse Ox Patient Condition: awake Patient Position: sitting Procedure Block Performed: spinal Prep: Betadine Sterile Field: mask, cap/hat, sterile field established and sterile gloves Approach: midline Skin Numbed with: lidocaine 1% Spinal Needle Type: pencil-point Needle Gauge: 25 G Needle Length: 3.5 in Placement Site: L3-4 Number of Attempts: 3 (see below) CSF: free flow, aspiration before injection, aspiration during injection and aspiration after injection Local Anesthetic: bupivacaine 0.75% in dextrose 15 Spinal Additive: PF morphine 0.2 mg fentanyl 10 mcg Events CSF return injection not painful no paresthesia no other event Degree of Difficulty: none Position Post Procedure: left uterine displacement Vital signs monitored and stable throughout. See Anesthesia Intraop record for details. Block Performed by: Dr. 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 X 1 attempt using tuohy 18 g Finding epidural space and long 25 g spinal needle through toughy per Dr. Mcguire FHT 60's prior to SAB completion. Dr. Shin in [place] Arturo Mcguire DO GENERAL ANESTHESIA O RDERABLES * (ABNORMAL) BLOOD GASES CORD DELMER (ISTAT) (03/20/2016 10:43 PM DIRECTOR SUPPLY) pH Cord Venous POCT 7.06(LL) 7.28 - 7.40 pH 03/20/2016 10:56 PM [facility] pCO2 Cord Venous POCT 72(H) 35 - 45 mmHg 03/20/2016 10:56 PM [facility] pO2 Cord Venous POCT 6(L) 22 - 33 mmHg 03/20/2016 10:56 PM [facility] HCO3 Cord Arterial POCT 21(L) 22 - 24 mmol/L 03/20/2016 10:56 PM [facility] BE Cord Venous POCT Calc -12(L) -6.4 - 1.6 mmol/L 03/20/2016 10:56 PM [facility] TCO2 Cord Venous POCT 23 22 - 30 mmol/L 03/20/2016 10:56 PM [facility] O2 Saturation % Cord Venous Calc POCT 3 % 03/20/2016 10:56 PM [facility] Site CORD DELMER 03/20/2016 10:56 PM [facility] Sample iSTAT CORD V 03/20/2016 10:56 PM [facility] Blood CORD BLOOD SPECIMEN / Unknown 03/20/2016 10:43 PM DIRECTOR SUPPLY 03/20/2016 10:56 PM DIRECTOR SUPPLY Brian Lang MD LAB - POINT OF CARE ORDERABLES [facility] [address] [place] [address] * (ABNORMAL) BLOOD GASES CORD ART (ISTAT) (03/20/2016 10:35 PM DIRECTOR SUPPLY) pH Cord Arterial POCT 7.02(LL) 7.20 - 7.34 pH 03/20/2016 10:56 PM [facility] pCO2 Cord Arterial POCT 79.4(HH) 45 - 55 mmHg 03/20/2016 10:56 PM [facility] pO2 Cord Arterial POCT <5(LL) 12 - 25 mmHg 03/20/2016 10:56 PM [facility] HCO3 Cord Arterial POCT 20.7(L) 22 - 24 mmol/L 03/20/2016 10:56 PM [facility] BE Cord Arterial POCT -12(L) -2.9 - 8.3 mmol/L 03/20/2016 10:56 PM [facility] TCO2 Cord Arterial POCT 23 mmol/L 03/20/2016 10:56 PM [facility] O2 Saturation Cord Art % Calc POCT % 03/20/2016 10:56 PM [facility] Site CORD ART 03/20/2016 10:56 PM [facility] Sample iSTAT CORD A 03/20/2016 10:56 PM [facility] Blood CORD BLOOD SPECIMEN / Unknown 03/20/2016 10:35 PM DIRECTOR SUPPLY 03/20/2016 10:56 PM DIRECTOR SUPPLY Brian Lang MD LAB - POINT OF CARE ORDERABLES [facility] [address] [place] [address] * GROSS + MICRO EXAM (STL) (03/20/2016 10:35 PM DIRECTOR SUPPLY) Case Report Surgical Pathology Report Case: [id number] Authorizing Provider: Kary Brunner MD Collected: 03/20/2016 10:35 PM Ordering Location: [facility] Received: 03/22/2016 07:22 AM Pathologist: Grant Reeves MD Specimen: Placenta 03/25/2016 1:43 PM DIRECTOR SUPPLY [facility] Final Diagnosis 1. Placenta, delivery: -- Third trimester placenta, 380 grams -- Three-vessel umbilical cord -- Unremarkable membranes FAUSTINO/merly 03/25/2016 1:43 PM DIRECTOR SUPPLY [facility] Gross Description Received in formalin in a container labeled Weston Ross, placenta. The container holds a 380 gram, 17.5 x 14.8 x 3.5 cm flores discoid placenta with attached membranes and umbilical cord. The membranes rupture marginally and are caban, semitransparent. The umbilical cord inserts eccentrically 4.5 cm from the placental disc margin and measures 8.5 cm in length and up to 1.5 cm in diameter. The umbilical cord contains three vessels. The surface is purple-caban. The vessels arborize in a normal pattern and are unremarkable. The maternal surface has well developed intact lobular cotyledons. Serial sections show red-brown parenchyma. There is an orange-caban firm area of thickening grossly consistent with an infarct measuring 1 x 0.7 x 0.5 cm. The infarct occupies less than 5% of the total placental parenchyma. Brake Drum Lathe Operator sections are submitted as follows: A1 - Membranes and umbilical cord A2 - and maternal surface A3 - Maternal surface DYT/dak 03/25/2016 1:43 PM DIRECTOR SUPPLY [facility] Microscopic Description Sections of the umbilical cord show three vessels with no significant pathologic diagnoses. No evidence of vasculitis or funisitis is seen. Sections of the membranes show no significant pathologic diagnoses. No chorioamnionitis is seen. Meconium is not identified. Sections of the placental disc show maturing chorionic villi with no evidence of hemorrhage or infarction. FAUSTINO/merly 03/25/2016 1:43 PM DIRECTOR SUPPLY [facility] Disclaimer All histochemical and/or immunohistochemical results are interpreted with controls that demonstrate appropriate staining reactions before reporting results. Note on use of immunocytochemistry reagents: This test was developed and its performance characteristic determined by [facility], Department of Laboratory Medicine. It has not been cleared or approved by the U.S. Food and Drug Administration (FDA). The FDA has determined that such clearance or approval is not necessary. The test is used for clinical purpose. It should not be regarded as investigational or for research. This laboratory is certified to perform high complexity testing. 03/25/2016 1:43 PM DIRECTOR SUPPLY [facility] Embedded Images 03/25/2016 1:43 PM DIRECTOR SUPPLY [facility] Pathology/Cytolo gy ENTIRE PLACENTA / Unknown 03/20/2016 10:35 PM DIRECTOR SUPPLY 03/22/2016 7:22 AM DIRECTOR SUPPLY Kary Brunner MD LAB - PATHOLOGY/CY TOLOGY ORDERABLES Performing Organization Address City/State/[facility] Co de Phone Number [facility] [address] [place] [address] * IP CONSULT TO NEONATOLOGY (03/20/2016 11:01 AM DIRECTOR SUPPLY) Narrative Procedure Note Tika Everett MD - 03/19/2016 7:19 PM CST Maternal Consult Note Weston Ross 535/01 Today's Date: 03/19/2016 Estimated Gestational Age: 34w0d Estimated Weight: 1577 g Date Requested: 03/19/16 Reason for requesting consultation: Labor induction at 34 weeks due tosevere pre-eclampsia HPI: Ms. Ross is a 35 yo at 34 weeks with likely chronichypertension with now super-imposed pre-eclampsia and IUGR. Patient wasadmitted for IOL due to severe pressures requiring IV medication. Infantalso with BPP of 6/8 at referring facility which improved to 8/8 uponadmission. Plan for corticosteroids, but will not delaydelivery for steroid window. Mother's blood type is AB+ serologiesnegative, GBS pending. JOYCELYN of 04/30/16 Name of male infant: Jorge Alberto Maternal History: OB History Para Term AB TAB SAB Ectopic Multiple Living 3 1 1 1 1 Current Medications: Followed by 0.9% NaCl injection 10 mL, Intracatheter, q8h ampicillin (OMNIPEN) 2,000 mg in 0.9% NaCl 100 mL IVPB, Intravenous,Once ampicillin 1,000 mg in 0.9% NaCl 50 mL IVPB, Intravenous, q4h magnesium sulfate 4 g in 100 mL bolus, Intravenous, BOLUS IV miSOPROStol (CYTOTEC) tablet 25 mcg, Vaginal, Once [COMPLETED] labetalol (NORMODYNE; TRANDATE) injection 20 mg, Intravenous,Once lactated ringers infusion, Intravenous, Continuous magnesium sulfate 4 g in 100 mL bolus, Intravenous, BOLUS IV magnesium sulfate infusion, Intravenous, Continuous oxytocin (PITOCIN) 30 units in 500 ml normal saline IV solution,Intravenous, CONTINUOUS PRN No current facility-administered medications on file prior to encounter. Current Outpatient Prescriptions on File Prior to Encounter Medication Sig Dispense Refill albuterol HFA (PROVENTIL;VENTOLIN;PROAIR) 108 (90 BASE) MCG/ACT inhalerInhale 2 Puffs by mouth every 6 hours as needed acetaminophen (TYLENOL) 500 MG tablet Take 1,000 mg by mouth every 4hours as needed for Pain or Headache Maximum allowable Acetaminophenamount = 4 Grams (4000 mg) / 24 hours. Vit-Fe Fumarate-FA ( VITAMIN) 28-0.8 MG tablet Take 1Tab by mouth once daily Other medications used during : tums Social History: reports that she has never smoked. She does not have anysmokeless tobacco history on file. She reports that she does not drinkalcohol or use illicit drugs. 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 Recommendations: Briefly discussed adverse outcome risks with 34 wk prematurity with motherat bedside including: RETURN AGENT/development: Discussed effects on feeding ability, poorregulation of temperature and respiratory centers. Small future risk formild developmental delay or learning issues. Recommended earlyintervention services and OT/PT as needed for concerns. Respiratory: Discussed possibility of needing respiratory supportincluding CPAP. steroids may assist lung maturity. Delayed feeding: Possible need for IV nutrition with TPN and delayed GIfeeding. Possible need for gavage feeding by NGT. Recommended earlyexpression of breastmilk. Recommend c/s for additional support. Hyperbilirubinemia: Discussed jaundice requiring phototherapygiven combined risk factors of prematurity, delayed enteric feeds, andpossibility of infection or any condition which may result in newbornhemolysis. Immature Immune system: Discussed risk of sepsis andsusceptibility of infection. Immediate and prolonged hospital stay: Discussed need for ICU care.Discussed possible need for IV lines, umbilical/central lines. General Morbidity and mortality: Reviewed survival data for infants ofcomparable gestational age and birthweight. Impression and plan: 35 yo at 34 wk EGA gestation with deliveryexpected due to maternal conditions. Additional risk factors include IUGR. 1. Introduced above risks and general care, patientunderstood and questions were answered. 2. Mother aware to contact our team with further questions. 3. Plan to provide neonatology support in case of delivery. 4. Discuss with attending for further recommendations. Thank you for the consult, please feel free to contact us for questions. Tika Valero MD INPATIENT CONSULT OR DERABLES * BLOOD TYPE VERIFICATION (03/19/2016 8:21 PM DIRECTOR SUPPLY) ABO AB 03/19/2016 9:30 PM DIRECTOR SUPPLY [facility] Rh Type Positive 03/19/2016 9:30 PM DIRECTOR SUPPLY [facility] Blood Bank BLOOD SPECIMEN / Unknown 03/19/2016 8:21 PM DIRECTOR SUPPLY 03/19/2016 8:57 PM DIRECTOR SUPPLY Brian Lang MD LAB - BLOOD BANK ORD ERABLES [facility] [address] * CHLAMYDIA + GC AMPLIFIED PROBE (03/19/2016 6:23 PM DIRECTOR SUPPLY) Chlamydia Amplified Probe Negative Negative 03/20/2016 9:38 AM DIRECTOR SUPPLY [facility] GC Amplified Probe Negative Negative 03/20/2016 9:38 AM [facility] Microbiology ENTIRE ENDOCERVIX / Unknown Collection / Unknown 03/19/2016 6:23 PM DIRECTOR SUPPLY 03/19/2016 6:28 PM DIRECTOR SUPPLY Narrative [facility] - 03/20/2016 9:38 AM DIRECTOR SUPPLY Results based on detection/no detection of ribosomal RNA by amplified method. Imtiaz Fulton MD LAB - MICROBIOLOGY O SAVANAH [facility] [address] [place] [address], [facility] [phone] * CULTURE STREP B (03/19/2016 6:23 PM DIRECTOR SUPPLY) Culture Negative for beta-hemolytic Streptococcus Group B RUSSELL 03/23/2016 1:34 PM DIRECTOR SUPPLY [facility] Microbiology MISCELLANEOUS SAMPLES / Unknown Collection / Unknown 03/19/2016 6:23 PM DIRECTOR SUPPLY 03/19/2016 6:28 PM DIRECTOR SUPPLY Imtiaz Fulton MD LAB - MICROBIOLOGY O SAVANAH Performing Organization Address [facility] Co de Phone Number [facility] [address] [place] [address], [facility] [phone] * (ABNORMAL) URINALYSIS ROUTINE W/REFLEX TO CULTURE (03/19/2016 5:42 PM DIRECTOR SUPPLY) Color UA Yellow Straw, Yellow, Dark Yellow 03/19/2016 5:58 PM DIRECTOR SUPPLY [facility] Clarity UA Cloudy 03/19/2016 5:58 PM DIRECTOR SUPPLY [facility] Specific [place] UA 1.018 1.005 - 1.030 03/19/2016 5:58 PM DIRECTOR SUPPLY [facility] pH UA 6.0 5.0 - 8.0 pH 03/19/2016 5:58 PM DIRECTOR SUPPLY [facility] Protein UA Trace(A) Negative 03/19/2016 5:58 PM DIRECTOR SUPPLY [facility] Blood UA Negative Negative 03/19/2016 5:58 PM DIRECTOR SUPPLY [facility] Leukocyte UA Negative Negative 03/19/2016 5:58 PM DIRECTOR SUPPLY [facility] Nitrite UA Negative Negative 03/19/2016 5:58 PM DIRECTOR SUPPLY [facility] Glucose UA Negative Negative 03/19/2016 5:58 PM DIRECTOR SUPPLY [facility] Ketone UA Negative Negative 03/19/2016 5:58 PM DIRECTOR SUPPLY [facility] Bilirubin UA Negative Negative 03/19/2016 5:58 PM DIRECTOR SUPPLY [facility] Urobilinogen UA 0.2 0.1 - 1.0 EU/dL 03/19/2016 5:58 PM DIRECTOR SUPPLY [facility] WBC UA Auto 5-10(A) 0-2, 2-5 # /hpf 03/19/2016 5:58 PM DIRECTOR SUPPLY [facility] RBC UA Auto 2-5 0-2, 2-5 # /hpf 03/19/2016 5:58 PM DIRECTOR SUPPLY [facility] Epithelial Cell UA Auto 10-20(A) 0-2, 2-5 # /hpf 03/19/2016 5:58 PM DIRECTOR SUPPLY [facility] Bacteria UA Auto 1+(A) None seen 03/19/2016 5:58 PM DIRECTOR SUPPLY [facility] Hyaline Casts UA Auto 2-5(A) 0 - 2 #/lpf 03/19/2016 5:58 PM DIRECTOR SUPPLY [facility] Reflex Status Culture not indicated 03/19/2016 5:58 PM DIRECTOR SUPPLY [facility] Urine URINE SPECIMEN OBTAINED BY CLEAN CATCH PROCEDURE / Unknown Collection / Unknown 03/19/2016 5:42 PM DIRECTOR SUPPLY 03/19/2016 5:49 PM DIRECTOR SUPPLY Tika Valero MD LAB - URINALYSIS ORD ERABLES Performing Organization Address City/[facility]/ZIP Co de Phone Number [facility] [address] [place] [address] * CULTURE URINE (03/19/2016 5:42 PM DIRECTOR SUPPLY) Culture 10,000-50,000 CFU/mL urogenital tra RUSSELL 03/21/2016 9:10 AM [facility] Urine URINE SPECIMEN OBTAINED BY CLEAN CATCH PROCEDURE / Unknown Collection / Unknown 03/19/2016 5:42 PM DIRECTOR SUPPLY 03/19/2016 5:49 PM DIRECTOR SUPPLY Tika Valero MD LAB - MICROBIOLOGY O RDERABLES [facility] [address] [place], [address] [phone] * PROTEIN CREATININE RATIO URINE RANDOM PNL (03/19/2016 5:42 PM DIRECTOR SUPPLY) Protein Urine 33.0 mg/dL 03/19/2016 6:26 PM DIRECTOR SUPPLY [facility] Creatinine Urine 120 mg/dL 03/19/2016 6:26 PM [facility] Protein/Creatin ine Ratio Urine 0.28 03/19/2016 6:26 PM [facility] Urine URINE SPECIMEN OBTAINED BY CLEAN CATCH PROCEDURE / Unknown Collection / Unknown 03/19/2016 5:42 PM DIRECTOR SUPPLY 03/19/2016 5:49 PM [facility] Tika Valero MD LAB - URINE CHEMISTR Y ORDERABLES [facility] [address] [place] [address] * (ABNORMAL) COMPREHENSIVE METABOLIC PANEL (03/19/2016 5:41 PM [facility]) Glucose 66(L) 74 - 106 mg/dL 03/19/2016 6:12 PM [facility] Sodium 139 136 - 145 mmol/L 03/19/2016 6:12 PM [facility] Potassium 4.3 3.5 - 5.1 mmol/L 03/19/2016 6:12 PM [facility] Chloride 108(H) 98 - 107 mmol/L 03/19/2016 6:12 PM [facility] CO2 22 22 - 31 mmol/L 03/19/2016 6:12 PM [facility] Calcium 9.5 8.5 - 10.1 mg/dL 03/19/2016 6:12 PM [facility] Anion Gap 9 8 - 16 mmol/L 03/19/2016 6:12 PM [facility] BUN 10 7 - 21 mg/dL 03/19/2016 6:12 PM [facility] Creatinine 0.60 0.50 - 1.30 mg/dL 03/19/2016 6:12 PM [facility] Alkaline Phosphatase 341(H) 38 - 126 U/L 03/19/2016 6:12 PM [facility] ALT 12(L) 13 - 61 U/L 03/19/2016 6:12 PM [facility] AST 14 5 - 40 U/L 03/19/2016 6:12 PM [facility] Protein Total 7.0 6.4 - 8.2 gm/dL 03/19/2016 6:12 PM [facility] Albumin 2.7(L) 3.4 - 5.0 gm/dL 03/19/2016 6:12 PM DIRECTOR SUPPLY [facility] Bilirubin Total 0.2 0.2 - 1.0 mg/dL 03/19/2016 6:12 PM DIRECTOR SUPPLY [facility] eGFR by MDRD >60 >60 mL/min/1.7 3m2 03/19/2016 6:12 PM DIRECTOR SUPPLY [facility] eGFR by MDRD >60 >60 mL/min/1.7 3m2 03/19/2016 6:12 PM DIRECTOR SUPPLY [facility] Blood BLOOD SPECIMEN / Unknown Venipuncture / Unknown 03/19/2016 5:41 PM DIRECTOR SUPPLY 03/19/2016 5:49 PM DIRECTOR SUPPLY Tika Valero MD LAB - CHEMISTRY TIANA VAZ [facility] ([place], [place]) Organization Address City/State/ZIP Co de Phone Number [facility] [address] [place] [address] * BIOPHYSICAL PROFILE W NST (03/19/2016 11:48 AM DIRECTOR SUPPLY) Anatomical Region Laterality Modality Other 03/19/2016 11:4 8 AM DIRECTOR SUPPLY Narrative 03/19/2016 1:38 PM [facility] PHONE: FAX: Pat. Name: WESTON ROSS Pat. No: [id number] Study Date: 03/19/2016 11:48am , Age: 04 1980, 35 Pregnancies: 3, Para 1, Ab 1 Height: 64 in Weight: 268 lb LMP: Unknown GA by 1st: 34w1d GA by US: 30w3d GA Selected: 34w1d (From Known E) JOYCELYN: 04/29/2016 Referring MD: Tacho Munoz MD Police Artist: Malia Frederick, RDMS BMI: 46 Hist/Ind: Suspected severe FGR (EFW & AC 3rd %ile on 03/01) Class III obesity Asthma Uterine myomas MEASUREMENTS & AGE GROWTH EVALUATION Measurement GA Range Srce %for GA Ratios ----- ---- ------- BPD 7.9 cm 31w4d ([id number]) Hadl BPD 13% FL/BPD 0.77 (0.71 - 0.87) HC 27.5 cm 30w0d (18o9w-46w5z) Hadl HC <05 FL/AC 0.24 (0.20 - 0.24) AC 25.6 cm 29w5d (25q1a-59e8m) Hadl AC <05 HC/AC 1.07 (0.94 - 1.13) FL 6.0 cm 31w3d (87x5k-42y5r) Hadl FL 9% CI 0.83 (0.70 - 0.86) GA for sonogram 30w3d (69i5i-07g1t) Weight Estimate: based on (BPD,HC,AC,FL) Hadlock Weight: 1577 gm (9155-4603) Hadlo : 3lbs, 7oz Normal: 2408 gm (9339-1396) Hadlo Wt% <10 for 34w1d Heart Rate: 153 bpm Amniotic Fluid Index: 10.7cm (08.1-24.8) Q1: 2.8cm Q2: 2.0cm Q3: 2.7cm Q4: 3.2cm Biophysical Profile: 08/03 Breathin Tone: 2 NST: 0 Movement: 2 AFV: 2 DOPPLER Umbilical - Mid Cord S/D 2.47(1.72 - 3.67) PI 0.91 (0.62 - 1.20) Middle Cerebral Artery PSV Med PSV 49.1cm/s MoM 1.22(<1.5) CLINICAL SUMMARY Study Number: 5 A single fetus is identified in cephalic presentation. The placenta is left lateral. No structural abnormalities were detected on today's limited review of the anatomy. The FHR baseline ranged from 145 to 150 bpm during today's NST. The FHR variability was moderate but the tracing was nonreactive and there was one deceleration down to 130 bpm that lasted 2 minutes. No contractions were recorded. IMPRESSION: 1) Flores gestation, 34w1d 2) Biometry is concerning for severe growth restriction with an AC & EFW <3rd %ile 3) The HC is <5th %ile but <3 standard deviations below the mean (not diagnostic of microcephaly) 4) The amniotic fluid volume is within normal limits. 5) Umbilical Dopplers reveal no evidence of increased arterial resistance 6) MCA Dopplers reveal no evidence of brain sparing (diastolic flow is not increased) 7) Equivocal biophysical profile NOTE: The patient was advised that ultrasound does not allow detection of all structural or chromosomal abnormalities. RECOMMEND: 1) Prolonged FHR monitoring and evaluation for preeclampsia at [facility]. 2) Repeat BPP within 24 hours 3) Repeat Dopplers within 1 week Thank you for allowing us the opportunity to care for your patient. Michelle Sauer MD <Electronic Signature> 03/19/2016 01:38pm Michelle Sauer MD [facility] * SONOGRAM - COMPLETE (03/01/2016 11:15 AM DIRECTOR SUPPLY) Only the most recent of4 resultswithin the time period is included. Anatomical Region Laterality Modality Other 03/01/2016 11:1 5 AM DIRECTOR SUPPLY Narrative 03/01/2016 12:53 PM DIRECTOR SUPPLY [facility] PHONE: FAX: Pat. Name: WESTON ROSS Pat. No: [id number] Study Date: 03/01/2016 11:15am , Age: 04 1980, 35 Pregnancies: 3, Para 1, Ab 1 Height: 64 in Weight: 268 lb LMP: Unknown GA by 1st: 31w4d GA by US: 28w6d GA Selected: 31w4d (From Known E) JOYCELYN: 04/29/2016 Referring MD: Tacho Munoz MD Police Artist: Tesha Gamez RDMS BMI: 46 Hist/Ind: Class III obesity Asthma Uterine myomas Low-lying placenta MEASUREMENTS & AGE GROWTH EVALUATION Measurement GA Range Srce %for GA Ratios ----- ---- ------- BPD 7.7 cm 30w5d (72p5u-79s1d) Hadl BPD 38% FL/BPD 0.76 (0.71 - 0.87) HC 26.6 cm 29w0d (27p1z-83j9a) Hadl HC <05 FL/AC 0.25 (0.20 - 0.24* AC 23.7 cm 28w0d (28w4u-19o1x) Hadl AC <05 HC/AC 1.12 (0.96 - 1.15) FL 5.8 cm 30w3d (74z8y-46j3b) Hadl FL 32% CI 0.86 (0.70 - 0.86* HL 5.1 cm 29w6d (55y9o-57a7c) Jevon HL 21% GA for sonogram 28w6d (96v9j-77y8i) Weight Estimate: based on (HC,AC,FL) Hadlock Weight: 1312 gm (3046-2337) Hadlo : 2lbs, 14oz Normal: 1866 gm (2222-4593) Hadlo Wt% <10 for 31w4d Heart Rate: 141 bpm Amniotic Fluid Index: 13.1cm (08.7-24.0) Q1: 2.6cm Q2: 3.4cm Q3: 3.6cm Q4: 3.5cm Biophysical Profile: 10/01 Breathin Tone: 2 Movement: 2 AFV: 2 DOPPLER Umbilical - Mid Cord S/D 2.58(1.87 - 3.92) PI 0.95 (0.67 - 1.26) CLINICAL SUMMARY Study Number: 4 A flores fetus is identified in cephalic presentation. No structural abnormalities were detected on today's limited review of the anatomy. The FHR baseline was 135 bpm during today's NST. The tracing was nonreactive but the FHR variability was moderate and no decelerations were detected. IMPRESSION: 1) Flores gestation, 31w4d 2) Biometry is concerning for severe growth restriction with a AC & EFW around the 3rd %ile 3) The HC is <5th %ile but <3 standard deviations below the mean (not diagnostic of microcephaly) 4) The amniotic fluid volume is within normal limits. 5) Umbilical Dopplers reveal no evidence of increased arterial resistance 6) Reassuring biophysical profile 7) Transvaginal ultrasound reveals a cervical length of 4.7 cm 8) The left lateral placenta is no longer low-lying NOTE: The patient was advised that ultrasound does not allow detection of all structural or chromosomal abnormalities. RECOMMEND: 1) Close maternal movement monitoring and repeat Dopplers and 10-point BPP in 1 week 2) Repeat growth assessment in 2-3 weeks Thank you for allowing us the opportunity to care for your patient. Michelle Sauer MD <Electronic Signature> 03/01/2016 12:53pm Addis Sears MD [facility] Care Teams Spiral Binder Relationship Specialty Start Date End Date Frank Ly PA [address] [place] [id number] PCP - General Physician Hydrator Operator 12/05/15
--- OUTSIDE RECORDS SUMMARY | 2024-05-10 15:59 | XMS_ITS | Data Portability ---
Author Organization [place] - [facility] OFFICE Address [address] [place] [address] Assessment No assessment recorded. Plan of Treatment Reminders Order Date Submit Date Provider Last Modified By Organization Details Last Modified Time Details Appointments None recorded. Lab None recorded. Referral None recorded. Procedures None recorded. Surgeries None recorded. Imaging electrocar diogram 2018 019 [place] Not available 9 17:25:56 Medication Orders amlodipine 10 mg tablet 2018 019 INTERFACE [id number], [address], [place], [place], [id number], 9 17:02:44 Patient TargetsNo targets recorded. Patient InstructionsNo instructions recorded. Reason for Referral None Reported. Results Created Date Observation Date Name Description Value Unit Range Abnormal Flag Note LastModifiedBy Organization Detail LastModifiedTime 10/30/19 19 07/14/2018 XR, chest No observ ation record ed. [email or web address] Not Available 2018 09:54:54 10/30/19 19 10/28/2018 violet luque am No observ ation record ed. [email or web address] Not Available 2018 09:56:42 11/03/19 19 10/28/2018 stres s echoc ardio gram No observ ation record ed. [facility] (Imaging) [address], [place], [address], 11/03/2018 08:04:22 11/04/19 19 10/28/2018 stres s echoc ardio gram No observ ation record ed. [email or web address] Not Available 2018 11:32:00 11/07/19 19 elect rocar diogr am No observ ation record ed. [email or web address] Michael Malave MD [address], [place], [address], 11/09/2018 09:34:38 11/10/19 19 11/05/2018 elect rocar diogr am No observ ation record ed. [email or web address] Not Available 2018 09:37:19 12/02/19 19 10/28/2018 , echoc ardio gram No observ ation record ed. [email or web address] Not Available 2018 14:29:41 Result Notes None recorded. Problems Name Problem SNOMED Code Status Onset Date Resolution Date Notes Provider Name and Address Organization Details Recorded Time Chest pain 41983332 Active 2018 Samuel Amor null, [place] - [facility] 9 04:31:12 Essential hypertension 56666512 Active 2018 Samuel Amor null, [place] - [facility] 9 04:31:25 Hyperlipidemia 70729869 Active 2018 Hala Zuleyma null, [place] - [facility] 9 04:31:34 Obesity 177748521 Active 2019 Farzana Gallo null, [place] - [facility] 0 13:56:22 Problem Notes None recorded. Procedures Surgical History Date Name Laterality Status Provider Name and Address Organization Details Recorded Time 7 section completed Waleska Mcguire [place] - [facility] 11/05/2018 16:45:17 Imaging Results Imaging Date Name Status LastModified by Organization Details LastModified Time 07/14/2018 XR, chest completed [email or web address] Information no t available 10/30/2018 09:54:54 10/28/2018 electrocardiogram completed [email or web address] Informa tion not available 10/30/2018 09:56:42 10/28/2018 stress echocardiogram completed [facility] ([facility]) [address] [place] [address] [place] [address], [phone], 11/03/2018 08:04:22 10/28/2018 stress echocardiogram completed [email or web address] Information not available 11/03/2018 11:32:00 11/06/2018 electrocardiogram completed [email or web address] Michael Weir MD [address], [place], [address], 11/09/2018 09:34:38 11/05/2018 electrocardiogram completed [email or web address] Informa tion not available 11/09/2018 09:37:19 10/28/2018 US, echocardiogram completed [email or web address] Inform ation not available 12/01/2018 14:29:41 Procedure Notes None recorded. Medical Equipment None Reported. Allergies Allergen ID Allergen Name Allergen Category Reaction Reaction Severity Criticality Documentation Date Start Date Code Code System Note Provider Name and Address Organization Details Recorded Time 8851 banana extract food,medi cation Not available Not available Not available 11/04/2018 87173 9 RxNorm Giovanya Zuleyma [facility] 9 04:31:51 8852 shrimp allergeni c extract food Not available Not available Not available 11/04/2018 82407 2 RxNorm Halericka Amor [facility] 9 04:31:58 Medications Name Sig Start Date Stop Date Status Note LastModified by Organization Details LastModified Time ipratropium 0.5 mg-albutero l 3 mg (2.5 mg base)/3 mL nebulizatio n soln active Not Available Not Available Not Available ibuprofen 800 mg tablet prn active Not Available Not Available Not Available fluconazole 150 mg tablet active Not Available Not Available Not Available metronidazo le 0.75 % (37.5 mg/5 gram) vaginal gel active Not Available Not Available Not Available prednisone 20 mg tablet active Not Available Not Available Not Available rizatriptan 10 mg tablet active Not Available Not Available Not Available amlodipine 5 mg tablet active pt not taking 11/05/18 Not Available Not Available Not Available amlodipine 10 mg tablet Take 1 tablet(s) every day by oral route. active Not Available Not Available No t Available hydrochloro thiazide 25 mg tablet active pt not taking. 11/05/18 Not Available Not Available Not Available albuterol sulfate HFA 90 mcg/actuati on aerosol inhaler Inhale 2 puffs every 4 hours by inhalation route. active Not Available Not Available No t Available fluoxetine 20 mg capsule active Not Available Not Available Not Available Ashlyna 0.15 mg-30 mcg (84)/10 mcg(7) tablets,3 month dose pack active Not Available Not Available Not Available Vitals Date Recorded Body weight Body mass index (BMI) Body height Heart rate Respiratory rate Oxygen saturation Oxygen saturation in Arterial blood by Pulse oximetry Systolic blood pressure Diastolic blood pressure Provider Name and Address Organization Details Last Updated DateTime 9 181502. 46 g 48.2 kg/m2 162.56 cm 86 /min 18 /min 98 % 98 % 128 mm[Hg] 86 mm[Hg] Waleska Maynor [place] - [facility] 9 16:42:45 Social History Question Answer Notes LastModified by Organizat ion Details LastModified Time Tobacco Smoking Status Never Smoker Not Available [facility] 12/28/2019 03:30:42 What Is Your Level Of Alcohol Consumption? None [id number] Information not available 12/28/2019 What Type Of Diet Are You Following? REGULAR [id number] Information not available 12/28/2019 Do You Or Have You Ever Used E-cigarettes Or Vape? Never Used Electronic Cigarettes [id number] Information not available 12/28/2019 Marital Status Single [email or web address] Informatio n not available 11/05/2018 What Was The Date Of Your Most Recent Tobacco Screening? 11/05/2018 [id number] Information not available 12/28/2019 How Many Children Do You Have? 2 [id number] Information not available 12/28/2019 Do You Or Have You Ever Used Smokeless Tobacco? Never Used Smokeless Tobacco [id number] Information not available 12/28/2019 How Much Tobacco Do You Smoke? No [id number] Information not available 12/28/2019 How Many Years Have You Smoked Tobacco? 0 [id number] Information not available 12/28/2019 Sex: Unknown Functional Status None recorded. Mental Status None recorded. Family History Relationship Description Onset Age of this Age Resolved Age Notes LastModified by Organization Details LastModified Time Father Myocardial infarction 43 [email or web address] Not available 11/04 13:27:27 Medical History Condition Response Hyperlipidemia Y Hypertension Y Asthma Y Gynecological HistoryNo gynecological history recorded. Obstetrics History GPAL:G 0 P 0 0 0 0 Past Encounters Encounter ID Performer Location Encounter Start Date Encounter Closed Date Diagnosis/Indication Diagnosis SNOMED-CT Code Diagnosis ICD10 Code Diagnosis Note [id number] Jyoti Rushing [facility] [address] [place] [address] 11/05/2018 16:11:59 11/05/2018 17:03:49 Essential hypertension 38151986 I10 Atypical chest pain 1025 58524 R07.89 Had stress test while admitted at [facility] that was negative for ischemia. Obesity 367825917 E66.9 Weight loss, 20 pounds Exercise advised Health Concerns Section Related Observation LastModified by Organization Detai ls LastModified Time None Recorded Concern Status LastModified by Organization Details LastModified Time None Recorded Advance Directives Directive None Recorded Payers Encounter Date Sequence Insurance Name Policy Number Policy Herrera Covered Member ID Herrera Member ID Guarantor Name 11/05/2018 1 [facility] (MEDICAID HMO) [id number] Weston Herrera [id number] Weston Herrera Notes Date Note Type Note Provider Name and Address Organization Details Recorded Time 11/05/2018 text/html 11/05/18 CC : Chest pain 65 years-old Female with h/o Hypertension and Hyperlipidemia is here for follow up . She was in [facility] in 10/28/18 because of Chest pain . Cardiac enzymes and EKG were negative . Had negative SE done in 10/28/18 with normal LV systolic and diastolic function, EF 65-70% , Results from this visit, or from the past:LIPID 10/28/2018 CH 184 TR 130 LDL 137 HDL 43PT 12.3 INR 0.9BMP 10/27/2018 NA 138 K 3.7 CH 107 CO2 19 GL 159 BUN 7 CR 0.60 CA 8.4 TROP I <0.012 stress Echo 10/28/2018 LV chamber size, wall thickness, systolic and diastolic function are normal with no regional wall motion abnormalities with an estimated EF of 65-70%. Negative stress echo for ischemia by wall wall motion analysis. Normal LVSF with no regional wall motion abnormalities notes at rest. stress echocardiogram 10/28/18 STRESS ECHO: Left ventricular chamber size, wall thickness ,systolic and diastolic function are normal with no regional wall motion abnormalities with an estimated ejection fraction of 65-70%. Negative stress echocardiogram for ischemia by wall motion analysis. Normal left ventricular systolic function with no regional wall motion abnormalities noted at rest. XR chest 07/14/2018 No acute cardiopulmonary disease Jyoti Rushing [facility], [place] - [facility] 11/05/2018 17:03:13 OBGyn Episode No OBEpisode recorded.
--- OUTSIDE RECORDS SUMMARY | 2024-05-10 15:59 | XMS_ITS | Data Portability ---
[facility] Organization [facility] Address [address] [place] [address] Assessment No assessment recorded. Plan of Treatment Reminders Order Date Submit Date Provider Last Modified By Organization Details Last Modified Time Details Appointments NURSE ONLY 2024 09:00A M Светлана Granados MD Not available Not available Not available ANY 30 2024 09:00A M Светлана Garnados MD Not available Not available Not available Lab microalbu min/creat inine, mass ratio, urine 2023 [place], [address], [place], [address], 12/05/2023 10:15:51 BNP (B-type natriuret ic peptide), serum or plasma 2023 024 [place], [address], [place], [address], 12/05/2023 07:15:14 TSH, ultra-sen sitive, serum 2023 024 [place] [facility], [address], [place], [address], 09/04/2023 11:16:21 CMP, serum or plasma 2023 024 [place] [facility], [address], [place], [address], 09/04/2023 11:16:21 albumin/c reatinine , mass ratio, urine 2023 024 [place] [facility], [address], [place], [address], 09/04/2023 11:16:19 CBC 2023 024 [place] [facility], [address], [place], [address], 09/04/2023 11:16:22 lipid panel, serum 2023 024 [place] [facility], [address], [place], [address], 09/04/2023 11:16:20 PPD (purified protein derivativ e), skin test 2023 024 [place] In-Office Order, Internal Use Only DO Not Attach Compendium DO Not Attach Compendium, Do Not Delete/merge, [id number] 04/14/2023 17:34:06 Referral physical therapist referral - left shoulder pain, xray normal, evaluate and treat 2023 024 [facility], [address] [place], [address], 04/10/2024 04:05:41 Procedures None recorded. Surgeries None recorded. Imaging MRI, shoulder, w/o contrast 2024 025 [facility] ([facility]), [address] [place], [address], 05/04/2024 12:50:35 XR, knee [address] [facility] ([facility]), [address] [place], [address], 04/28/2024 14:50:19 [facility] [address] [place], [address], 01/21/2024 14:20:39 Medication Orders amlodipin e 10 mg tablet 2024 025 [facility]07215, [address], [place], [place], [id number], 04/23/2024 11:13:40 hydroxyzi ne HCl 25 mg tablet 2023 [facility] #84098, [address], [place], [place], [id number], 01/08/2024 13:30:44 amlodipin e 10 mg tablet 2023 [facility] #65800, [address], [place], [place], [id number], 12/04/2023 13:09:17 phentermi ne 15 mg capsule 2023 024 [facility] #18823, [address], [place], [place], [id number], 12/04/2023 13:09:17 albuterol sulfate 2.5 mg/3 mL (0.083 %) solution for nebulizat ion 2023 024 [facility] #85060, [address], [place], [place], [id number], 09/03/2023 11:59:54 albuterol sulfate HFA 90 mcg/actua tion aerosol inhaler 2023 [facility] #24351, [address], [place], [place], [id number], 09/03/2023 11:59:53 amlodipin e 10 mg tablet 2023 [facility] #48602, [address], [place], [place], [id number], 09/03/2023 11:59:54 cyclobenz aprine 10 mg tablet 2023 [facility] #08171, [address], [place], [place], [id number], 01/08/2024 13:25:28 Tubersol 5 tub. unit/0.1 mL intraderm al injection solution 2023 [facility] #33093, [address], [place], [place], [id number], 09/03/2023 10:58:59 Patient TargetsNo targets recorded. Patient Instructions Encounter Date Encounter Id Patient Instructions Last Modified By Organization Details Last Modified Time 09/03/2023 [id number] dash diet: care instructions kfarroll Not available 09/03/2023 11:59:39 learning about t he mediterranean diet kfarroll Not available 09/03/2023 11:59:39 Reason for Referral Physical Therapist Referral for Shoulder pain left shoulder pain, xray normal, evaluate and treat Referring Physician: Светлана Granados, Family Medicine, Encounter Date: 01/08/2024 Results Created Date Observation Date Name Description Value Unit Range Abnormal Flag Note LastModifiedBy Organization Detail LastModifiedTime 04/14/1904/14/2023 PPD (danita fied prote in deriv ative ), skin test Result Negati ve Not Available In-Office Order Internal Use Only DO Not Attach Compendium DO Not Attach Compendium, Do Not Delete/merge, [id number] 04/07/2023 17:24:28 07/18/1907/18/2023 pap, IG + CT/NG + HPV + refle x HPV (16+1 8+45) HPV neg Not Available Not Availa ble 01/01/2024 15:53:24 09/03/19 24 09/04/2023 ALBUM IN/CR EATIN INE RATIO ,URIN E creatinine, urine 494.2 mg/dL notest ab. Not Available [facility] ([facility]) [address] [place], [address], 09/04/2023 11:16:19 09/03/19 24 09/04/2023 ALBUM IN/CR EATIN INE RATIO ,URIN E albumin, urine 175.7 ug/mL notest ab. Not Available [facility] ([facility]) [address] [facility], [place], [address], 09/04/2023 11:16:19 09/03/19 24 09/04/2023 ALBUM IN/CR EATIN INE RATIO ,URIN E alb/creat ratio 36 mg/g_ creat 0-29 above high normal Eladia l: 0 - 29 Moder ately incre ased: 30 - 300 Sever rocio incre ased: >300 Not Available [facility] ([facility]) [address] [facility], [place], [address], 09/04/2023 11:16:19 09/03/19 24 09/04/2023 LIPID PANEL cholesterol, total 235 mg/dL 100-19 9 above high normal Not Available [facility] ([facility]) [address] [facility], [place], [address], 09/04/2023 11:16:20 09/03/19 24 09/04/2023 LIPID PANEL triglyceride s 112 mg/dL 0-149 Not Available [facility] ([facility]) [address] [place], [address], 09/04/2023 11:16:20 09/03/19 24 09/04/2023 LIPID PANEL HDL cholesterol 59 mg/dL >39 Not Available [facility] [address] [facility], [place], [address], 09/04/2023 11:16:20 09/03/19 24 09/04/2023 LIPID PANEL VLDL cholesterol timur 20 mg/dL 5-40 Not Available [facility] ([facility]) [address] [facility] [place], [address], 09/04/2023 11:16:20 09/03/19 24 09/04/2023 LIPID PANEL LDL chol calc ([facility]) 156 mg/dL 0-99 above high normal Not Available [facility] ([facility]) [address] [facility] [place], [address], 09/04/2023 11:16:20 09/03/19 24 09/04/2023 COMP. METAB OLIC PANEL (14) glucose 77 mg/dL 70-99 Not Available [facility] ([facility]) [address] [facility] [place], [address], 09/04/2023 11:16:20 09/03/19 24 09/04/2023 COMP. METAB OLIC PANEL (14) BUN 7 mg/dL 6-24 Not Available [facility] ([facility]) [address] [facility] [place], [address], 09/04/2023 11:16:20 09/03/19 24 09/04/2023 COMP. METAB OLIC PANEL (14) creatinine 0.77 mg/dL 0.57-1 .00 Not Available [facility] ([facility]) [address] [facility] [place], [address], 09/04/2023 11:16:20 09/03/19 24 09/04/2023 COMP. METAB OLIC PANEL (14) eGFR 99 mL/mi n/1.7 3 >59 Not Available [facility] ([facility]) [address] [facility] [place], [address], 09/04/2023 11:16:20 09/03/19 24 09/04/2023 COMP. METAB OLIC PANEL (14) BUN/creatini ne ratio 9 9-23 Not Available [facility]) [address] [facility] [place], [address], 09/04/2023 11:16:20 09/03/19 24 09/04/2023 COMP. METAB OLIC PANEL (14) sodium 140 mmol/ L 134-14 4 Not Available [facility] ([facility]) [address] [facility] [place], [address], 09/04/2023 11:16:20 09/03/19 24 09/04/2023 COMP. METAB OLIC PANEL (14) potassium 4.2 mmol/ L 3.5-5. 2 Not Available [facility] ([facility]) [address] [facility] [place], [address], 09/04/2023 11:16:20 09/03/19 24 09/04/2023 COMP. METAB OLIC PANEL (14) chloride 105 mmol/ L 96-106 Not Available [facility] ([facility]) [address] [facility] [place], [address], 09/04/2023 11:16:20 09/03/19 24 09/04/2023 COMP. METAB OLIC PANEL (14) carbon dioxide, total 20 mmol/ L 20-29 Not Available [facility] ([facility]) [address] [facility] [place], [address], 09/04/2023 11:16:20 09/03/19 24 09/04/2023 COMP. METAB OLIC PANEL (14) calcium 9.0 mg/dL 8.7-10 .2 Not Available [facility] ([facility]) [address] [facility] [place], [address], 09/04/2023 11:16:20 09/03/19 24 09/04/2023 COMP. METAB OLIC PANEL (14) protein, total 6.9 g/dL 6.0-8. 5 Not Available [facility] ([facility]) [address] [facility] [place], [address], 09/04/2023 11:16:20 09/03/19 24 09/04/2023 COMP. METAB OLIC PANEL (14) albumin 4.1 g/dL 3.9-4. 9 Not Available [facility] ([facility]) [address] [facility] [place], [address], 09/04/2023 11:16:20 09/03/19 24 09/04/2023 COMP. METAB OLIC PANEL (14) globulin, total 2.8 g/dL 1.5-4. 5 Not Available [facility] ([facility]) [address] [facility] [place], [address], 09/04/2023 11:16:20 09/03/19 24 09/04/2023 COMP. METAB OLIC PANEL (14) bilirubin, total 0.4 mg/dL 0.0-1. 2 Not Available [facility] ([facility]) [address] [facility] [place], [address], 09/04/2023 11:16:20 09/03/19 24 09/04/2023 COMP. METAB OLIC PANEL (14) alkaline phosphatase 100 IU/L 44-121 Not Available [facility] [address] [facility] [place], [address], 09/04/2023 11:16:20 09/03/19 24 09/04/2023 COMP. METAB OLIC PANEL (14) AST (SGOT) 18 IU/L 0-40 Not Available [facility] ([facility]) [address] [facility] [place], [address], 09/04/2023 11:16:20 09/03/19 24 09/04/2023 COMP. METAB OLIC PANEL (14) ALT (SGPT) 15 IU/L 0-32 Not Available [facility] ([facility]) [address] [facility] [place], [address], 09/04/2023 11:16:20 09/03/19 24 09/04/2023 TSH RFX ON ABNOR MAL TO FREE T4 TSH 1.100 uIU/m L 0.450- 4.500 Not Available [facility] ([facility]) [address] [facility], [place], [address], 09/04/2023 11:16:21 09/03/19 24 09/04/2023 CBC, PLATE LET, NO DIFFE RENTI AL WBC 5.1 x10e3 /uL 3.4-10 .8 Not Available [facility] ([facility]) [address] [facility], [place], [address], 09/04/2023 11:16:22 09/03/19 24 09/04/2023 CBC, PLATE LET, NO DIFFE RENTI AL RBC 4.54 x10e6 /uL 3.77-5 .28 Not Available [facility] ([facility]) [address] [facility], [place], [address], 09/04/2023 11:16:22 09/03/19 24 09/04/2023 CBC, PLATE LET, NO DIFFE RENTI AL hemoglobin 13.6 g/dL 11.1-1 5.9 Not Available [facility] ([facility]) [address] [facility], [place], [address], 09/04/2023 11:16:22 09/03/19 24 09/04/2023 CBC, PLATE LET, NO DIFFE RENTI AL hematocrit 42.3 % 34.0-4 6.6 Not Available [facility] ([facility]) [address] [facility], [place], [address], 09/04/2023 11:16:22 09/03/19 24 09/04/2023 CBC, PLATE LET, NO DIFFE RENTI AL MCV 93 fL 79-97 Not Available [facility] ([facility]) [address] [facility], [place], [address], 09/04/2023 11:16:22 09/03/19 24 09/04/2023 CBC, PLATE LET, NO DIFFE RENTI AL MCH 30.0 pg 26.6-3 3.0 Not Available [facility] ([facility]) [address] [facility], [place], [address], 09/04/2023 11:16:22 09/03/19 24 09/04/2023 CBC, PLATE LET, NO DIFFE RENTI AL MCHC 32.2 g/dL 31.5-3 5.7 Not Available [facility] ([facility]) [address] [facility], [place], [address], 09/04/2023 11:16:22 09/03/19 24 09/04/2023 CBC, PLATE LET, NO DIFFE RENTI AL RDW 13.0 % 11.7-1 5.4 Not Available [facility] ([facility]) [address] [facility], [place], [address], 09/04/2023 11:16:22 09/03/19 24 09/04/2023 CBC, PLATE LET, NO DIFFE RENTI AL platelets 307 x10e3 /uL 150-45 0 Not Available [facility] ([facility]) [address] [facility], [place], [address], 09/04/2023 11:16:22 12/04/19 24 12/05/2023 B-TYP E NATRI URETI C PEPTI DE B-type natriuretic peptide 19.2 pg/mL 0.0-10 0.0 Sieme ns ADVIA [facility] XP metho dolog y Not Available [facility] ([facility]) [address] [facility], [place], [address], 12/05/2023 07:15:14 12/04/19 24 12/05/2023 ALBUM IN/CR EAT RATIO , RANDO M UR creatinine, urine 306.8 mg/dL notest ab. Not Available [facility] ([facility]) [address] [place], [address], 12/05/2023 10:15:51 12/04/19 24 12/05/2023 ALBUM IN/CR EAT RATIO , RANDO M UR albumin, urine 74.6 ug/mL notest ab. Not Available [facility] ([facility]) [address] [facility], [place], [address], 12/05/2023 10:15:51 12/04/19 24 12/05/2023 ALBUM IN/CR EAT RATIO , RANDO M UR alb/creat ratio 24 mg/g_ creat 0-29 Eladia l: 0 - 29 Moder ately incre ased: 30 - 300 Sever rocio incre ased: >300 Not Available [facility] ([facility]) [address] [facility], [place], [address], 12/05/2023 10:15:51 12/04/19 24 12/04/2023 micro album in/cr eatin ine, mass ratio , urine albumin/crea tinine ratio, random urine 24 0-29 normal Not Available [facility] [address] [address], [place], [address], 02/23/2024 11:57:54 12/04/19 24 09/05/2023 US, trans vagin al No observ ation record ed. [facility] [address] [place], [address], 12/05/2023 12:26:29 12/04/19 24 09/05/2023 XR, shoul prasanna No observ ation record ed. [facility] [address] [place], [address], 12/09/2023 11:14:17 12/04/19 24 09/05/2023 MAMMO , scree edi, digit al, bilat eral No observ ation record ed. [email or web address] Not Available 2023 15:02:58 Result Notes None recorded. Problems Name Problem SNOMED Code Status Onset Date Resolution Date Notes Provider Name and Address Organization Details Recorded Time Physical examination 4565152 Active 2021 Frank Ly PA-C Attn: Devang g,[address] [facility] [address], [place], [address], [place] [facility] 2 14:59:06 Tuberculosis screening Active 2021 Frank Ly PA-C Attn: Devang kramer,[address] [facility], [place], [address], [place] [facility] 2 14:59:25 Essential hypertension 69309033 Active 2021 Frank Ly PA-C Attn: Devang kramer,[address] [facility], [place], [address], [place] [facility] 2 15:04:25 Under immunized 410902995 Active 2021 Frank Ly PA-C Attn: Devang kramer,[address] [facility], [place], [address], [place] [facility] 2 15:06:39 Obese 321670431 Active 2021 Frank Ly PA-C Attn: Devang kramer,[address] [facility], [place], [address], [place] [facility] 2 15:08:45 Hyperlipidemia 65112010 Active 2021 Frank Ly PA-C Attn: Devang kramer,[address] [facility], [place], [address], [place] [facility] 2 17:04:58 Serum vitamin B12 borderline low 470468835 Active 2021 Frank Ly PA-C Attn: Devang kramer,[address] [facility], [place], [address], [place] [facility] 2 17:08:08 Vitamin D deficiency 01626298 Active 2021 Frank Ly PA-C Attn: Devang kramer,[address] [facility], [place], [address], [place] [facility] 2 17:10:29 Problem Notes None recorded. Procedures Surgical History Date Name Laterality Status Provider Name and Address Organization Details Recorded Time section completed Lavern Delarosa [place] [facility] 09/03/2023 11:00:40 Imaging Results Imaging Date Name Status LastModified by Organization Details LastModified Time 09/05/2023 US, transvaginal completed [facility] [address] [place], [address], 12/05/2023 12:26:29 09/05/2023 XR, shoulder completed [facility] [address] [place], [address], 12/09/2023 11:14:17 09/05/2023 MAMMO, screening, digital, bilateral completed [email or web address] Information not available 12/04/2023 15:02:58 Procedure Notes None recorded. Medical Equipment None Reported. Allergies Allergen ID Allergen Name Allergen Category Reaction Reaction Severity Criticality Documentation Date Start Date Code Code System Note Provider Name and Address Organization Details Recorded Time 292847 banana extract food,medi cation other severe high 07/09/2021 12797 9 RxNorm Not Available Not Available Not Available 420079 shrimp allergeni c extract food other mild high 07/09/2021 99258 2 RxNorm Not Available Not Available Not Available Medications Name Sig Start Date Stop Date Status Note LastModified by Organization Details LastModified Time cyclobenzap rine 10 mg tablet one tab po hs for ten days. Can use bid if well tolerated . Caution on sedation. 01/07 completed Not Available Not Available Not Available medroxyprog esterone 10 mg tablet TAKE 1 TABLET BY MOUTH EVERY DAY FOR 14 DAYS 07/09 completed Not Available Not Available Not Available albuterol sulfate 2.5 mg/3 mL (0.083 %) solution for nebulizatio n USE 1 VIAL IN NEBULIZER FOUR TIMES DAILY NEEDED active Not Available Not Available No t Available ibuprofen 800 mg tablet TAKE 1 TABLET BY MOUTH THREE TIMES DAILY NEEDED FOR PAIN active Not Available Not Available No t Available fluconazole 150 mg tablet TAKE 1 TABLET BY MOUTH EVERY 72 HOURS 01/07 completed Not Available Not Available Not Available Tubersol 5 tub. unit/0.1 mL intradermal injection solution Administe r .1ml interderm ally 09/02 completed Not Available Not Available Not Available phentermine 15 mg capsule TAKE 1 CAPSULE BY MOUTH EVERY DAY active Not Available Not Available No t Available metronidazo le 500 mg tablet TAKE 1 TABLET BY MOUTH EVERY 12 HOURS 09/02 completed Not Available Not Available Not Available sulfamethox azole 800 mg-trimetho prim 160 mg tablet TAKE 1 TABLET BY MOUTH EVERY 12 HOURS 09/02 completed Not Available Not Available Not Available acetaminoph en 500 mg tablet TAKE 1 TABLET BY MOUTH EVERY 6 HOURS NEEDED FOR PAIN 09/02 completed Not Available Not Available Not Available amlodipine 10 mg tablet one tab po q d 2024 active Not Available Not Available Not Avai lable hydrocortis one 1 % topical cream APPLY TOPICALLY THREE TIMES DAILY NEEDED FOR SKIN IRRITATIO N 09/02 completed Not Available Not Available Not Available hydroxyzine HCl 25 mg tablet TAKE 1 TO 2 TABLETS BY MOUTH THREE TIMES DAILY NEEDED. CAN TAKE BEFORE FLYING active Not Available Not Available No t Available cyanocobala min (vit B-12) 1,[address] 1 tablet twice a day by sublingua l route for 30 days. 08/29 completed Not Available Not Available Not Available albuterol sulfate HFA 90 mcg/actuati on aerosol inhaler INHALE 2 PUFFS BY MOUTH FOUR TIMES DAILY NEEDED active Not Available Not Available No t Available naproxen 500 mg tablet TAKE 1 TABLET BY MOUTH TWICE DAILY 09/02 completed Not Available Not Available Not Available amoxicillin 875 mg-potassiu m clavulanate 125 mg tablet TAKE 1 TABLET BY MOUTH TWICE DAILY 09/02 completed Not Available Not Available Not Available ezetimibe 10 mg tablet TAKE 1 TABLET BY MOUTH EVERY DAY IN THE MORNING 01/07 completed Not Available Not Available Not Available chlorhexidi ne gluconate 0.12 % mouthwash TAKE 10ML 2 TIMES VERA AFTER BRUSHING TEETH. SWISH FOR 60 SECONDS AND THEN SPIT 09/02 completed Not Available Not Available Not Available Vitamin D3 01/07 completed Not Available Not Available Not Available cholecalcif soledad (vitamin D3) 50 mcg (2,000 unit) capsule Take 1 capsule every day by oral route with meals for 30 days. 08/29 completed Not Available Not Available Not Available Vitamin D3 125 mcg (5,000 unit) tablet Take by oral route. 09/02 completed Not Available Not Available Not Available Cecily 30 mg tablet TAKE 1 TABLET BY MOUTH FOR 1 DOSE 09/02 completed Not Available Not Available Not Available Meggan 0.25 mg-0.035 mg tablet TAKE 1 TABLET BY MOUTH EVERY DAY 07/09 completed Not Available Not Available Not Available Vitals Date Recorded Body height Provider Name an d Address Organization Details Last Updated DateTime 04/07/2023 160.02 cm Mariposa Barth [facility] 04/07/2023 17:09:30 Date Recorded Body height Body mass index (BMI) Body weight Oxygen saturation Oxygen saturation in Arterial blood by Pulse oximetry Heart rate Respiratory rate Systolic blood pressure Diastolic blood pressure Provider Name and Address Organization Details Last Updated DateTime 4 160.02 cm 50.8 kg/m2 037474. 01 g 98 % 98 % 81 /min 16 /min 124 mm[Hg] 70 mm[Hg] Lavern Delarosa [facility] 4 11:03:20 Date Recorded Body height Body mass index (BMI) Body weight Oxygen saturation Oxygen saturation in Arterial blood by Pulse oximetry Heart rate Systolic blood pressure Diastolic blood pressure Provider Name and Address Organization Details Last Updated DateTime 4 160.02 cm 51.2 kg/m2 235006. 19 g 100 % 100 % 88 /min 122 mm[Hg] 70 mm[Hg] Lavern Delarosa [facility] 4 12:06:02 Date Recorded Body height Body mass index (BMI) Body weight Oxygen saturation Oxygen saturation in Arterial blood by Pulse oximetry Heart rate Systolic blood pressure Diastolic blood pressure Provider Name and Address Organization Details Last Updated DateTime 4 160.02 cm 51.7 kg/m2 963043. 97 g 100 % 100 % 89 /min 122 mm[Hg] 72 mm[Hg] Lavern Delarosa [facility] 4 12:29:47 Date Recorded Body height Body mass index (BMI) Body weight Oxygen saturation Oxygen saturation in Arterial blood by Pulse oximetry Heart rate Body temperature Systolic blood pressure Diastolic blood pressure Provider Name and Address Organization Details Last Updated DateTime 5 160.02 cm 52.4 kg/m2 281578. 34 g 97 % 97 % 78 /min 98.7 [degF] 120 mm[Hg] 72 mm[Hg] Lavern Delarosa [place] 10:10:49 Social History Question Answer Notes LastModified by Organizat ion Details LastModified Time Tobacco Smoking Status Never Smoker Yoanaselena Linn [place] null, [place] - [facility] 07/09/2021 14:48:45 What Is Your Level Of Alcohol Consumption? Occasional Information not available 07/09/2021 Are You Blind Or Do You Have Difficulty Seeing? No Information not available 07/09/2021 What Is Your Level Of Caffeine Consumption? None Information not available 07/09/2021 Are You Currently Employed? Yes Information not available 07/09/2021 Are You Deaf Or Do You Have Serious Difficulty Hearing? No Information not available 07/09/2021 What Type Of Diet Are You Following? 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 04/23/2024 Information not available 04/23/2024 How Many Children Do You Have? -1 Information not available 07/09/2021 Do You Use Protection During Sex? No Information not available 07/09/2021 What Is Your Relationship Status? Single Information not available 07/09/2021 Are You Sexually Active? Yes Information not available 07/09/2021 Do You Have Smoke And Carbon Monoxide Detectors In Your Home? Yes Information not available 07/09/2021 Are You Passively Exposed To Smoke? Yes Information no t available 07/09/2021 Do You Use Any Illicit Or Recreational Drugs? No Information not available 07/09/2021 Has Tobacco Cessation Counseling Been Provided? Yes Information not available 04/23/2024 On What Date Was Tobacco Cessation Counseling Provided? 04/23/2024 Information not available 04/23/2024 Sex: Female Functional Status Question Answer Note LastModified by Organization D etails LastModified Time Are you able to care for yourself? Yes Information not available 07/09/2021 What is your exercise level? Moderate Information not available 07/09/2021 Mental Status None recorded. Family History Nothing Reported. Medical History No medical history recorded. Gynecological HistoryNo gynecological history recorded. Obstetrics History GPAL:G 0 P 0 0 0 0 Immunizations Vaccine Type Date Status Note Provider Nam e and Address Organization Details Recorded Time Influenza, MDCK, trivalent, PF 4 completed Yoana L[place], [place] [facility] 08/29/2022 10:51:02 COVID-19, mRNA, LNP-S, bivalent, PF, 30 mcg/0.3 mL dose 3 completed Yoana L[place] [facility] 09/10/2022 11:09:13 Influenza, split virus, quadrivalent, preservative 2 completed Yoana L[place] [facility] 07/12/2021 14:06:22 Hep A-Hep B 3 completed Yoana L[place] [facility] 09/10/2022 11:01:28 Past Encounters Encounter ID Performer Location Encounter Start Date Encounter Closed Date Diagnosis/Indication Diagnosis SNOMED-CT Code Diagnosis ICD10 Code Diagnosis Note [id number] RAE Kirk (Adult Med) [address] [place] [id number] 07/09/2021 14:32:42 07/10/2021 08:39:50 Tuberculosis screening 332984134 Z11.7 Physical examination 588 0005 Z04.9 Essential hypertension 95747652 I10 Under immunized 03168154 8 Z28.3 Obese 214447279 E66.9 [id number] PADDY Potter (Adult Med) [address] [place] [id number] 0 07/11/2021 16:59:14 07/12/2021 14:40:17 Administration of influenza vaccine 74438478 Z23 [id number] Irma Valdovinos MD [facility] (Adult Med) [address] [place] [id number] 0 08/29/2022 10:47:48 09/02/2022 15:10:59 History and physical examination, pre-employment 471802234 Z02.1 Her previous Titers of MMR and varicella are immune. Pending titer of tetanus and TB lab. Just been drawn today. Can not do skin TB test today , it is which requires patient to be back in 48 hours. Morbid obesity 700467760 E66.01 Advised her to watch her diet, exercise and keep the weight down. 08-29-22. [id number] Yoana Linn MA [facility] (Adult Med) [address] [place] [phone] 0 09/10/2022 10:42:36 09/11/2022 14:39:22 Requires course of hepatitis B vaccination 827903832 Z28.39 Blood test indicates she is not immune. patient informed. 0,1 and 6 months shots. patient informed. [id number] Irma Valdovinos MD [facility] (Adult Med) [address] [place] [phone] 0 04/07/2023 16:57:07 04/08/2023 13:47:00 Tuberculosis screening 418063773 Z11.1 [id number] Светлана Granados MD [facility] (Adult Med) [address] [place] [id number] 0 09/03/2023 10:47:03 09/04/2023 12:56:03 Essential hypertension 87118030 I10 Blood pressure good. Continue present medication . Will get fasting blood work and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
--- OUTSIDE RECORDS SUMMARY | 2024-05-10 15:59 | XMS_ITS | CONTINUITY OF CARE DOCUMENT ---
Author Name kenyetta kumari Address Unknown Organization [facility] Address [address] [place] [address] Phone [phone] Care Team Providers Care Tap Grinder Name Role Phone Tanner Shepard MD Unavailable Tanner Shepard MD Unavailable [phone] INSURANCE PROVIDERS Payer name Policy type / Coverage type [employer] red green party ID [employer] MEDICAID Medicaid [id number]
--- OUTSIDE RECORDS SUMMARY | 2024-05-10 15:59 | XMS_ITS | Clinical Summary ---
Author Organization [facility] [employer] Address [address] [place] [address] Care Team Providers Care Cutting Tool Sharpener Name Role Phone Frank Ly Primary Care Provider + Source Comments [facility] [employer],non-owned Affiliates and Associated Physician Practices is amultiple site organization consisting of ambulatory clinics and hospital sitesin [place] and [place]. This disclosure is being madepursuant to the Care Everywhere program and may not contain all information available regarding this patient. Last updated 17.[facility] [employer] Allergies Active Allergy Reactions Criticality Noted Date [...] 12/13/2015 Supervision of high risk in second [facility] 12/13/2015 Encounter for ultrasound 12/12/2015 Uterine leiomyoma [...] Comments Blood Pressure 140/78 03/30/2016 8:09 PM BATTERBOARD SETTER Pulse 94 03/24/2016 8:30 AM BATTERBOARD SETTER Temperature 37.1 C (98.7 F) 03/30/2016 8:03 PM BATTERBOARD SETTER Respiratory Rate 18 03/30/2016 8:03 PM BATTERBOARD SETTER Oxygen Saturation 100% 03/24/2016 4:35 AM BATTERBOARD SETTER Inhaled Oxygen Concentration - - Weight 127.5 kg (281 lb) 03/30/2016 8:03 PM BATTERBOARD SETTER Height 162.6 cm (5' 4 ) 03/30/2016 8:03 PM BATTERBOARD SETTER Body Mass Index 48.23 03/30/2016 8:03 PM BATTERBOARD SETTER Plan of Treatment Health Maintenance Due Date Last Done Comments LIPID TESTING 1982 MAMMOGRAM 1982 PAP SMEAR 1982 HIV SCREENING 1997 HEPATITIS C SCREENING 06/06/2000 HEPATITIS B VACCINE (1 of 3 - 19+ 3-dose series) 2001 COVID-19 VACCINE (2023-2 5 season) 2023 INFLUENZA VACCINE (#1) 2023 03/24/2016 DEPRESSION SCREENING 02/25/2024 DTAP/TDAP/TD VACCINES (2 - T d or Tdap) 03/24/2026 03/24/2016 ZOSTER VACCINE (1 of 2) 2032 HIB VACCINE Aged Out No longer eligi ble based on patient's age to complete this topic HPV VACCINE Aged Out No longer eligi ble based on patient's age to complete this topic MENINGOCOCCAL (Group B) VACC INE SHARED DECISION-MAKING Aged Out No longer eligibl e based on patient's age to complete this topic MENINGOCOCCAL GROUPS A/C/Y/W VACCINE Aged Out No longer eligible b ased on patient's age to complete this topic PNEUMOCOCCAL VACCINE Aged Out No long er eligible based on patient's age to complete this topic Advance Directives * Full Code (Latest Code [...] 4:48 PM 03/19/2016 6:57 PM Care Teams Cutting Tool Sharpener Relationship Specialty Start Date End Date Frank Ly PA [address] [place] [address] PCP - General Physician Switchgear Repairer 12/05/15
--- OUTSIDE RECORDS SUMMARY | 2024-05-10 17:17 | XMS_ITS | Referral Summary ---
Author Organization [facility] [employer] Address [address] [place] [address] Care Team Providers Care Pump Servicer Supervisor Name Role Phone Frank Ly Primary Care Provider + Source Comments [facility] [employer],non-[facility] Affiliates and Associated Physician Practices is amultiple site organization consisting of ambulatory clinics and hospital sitesin [place], [place], [place] and [place]. This disclosure is being madepursuant to the Care Everywhere program and may not contain all information available regarding this patient. Last updated 17.[facility] [employer] Allergies Active Allergy Reactions Criticality Noted Date [...] 12/13/2015 Supervision of high risk in second [facility] 12/13/2015 Encounter for ultrasound 12/12/2015 Uterine [...] Comments Blood Pressure 140/78 03/30/2016 8:09 PM SANDWICH HAND Pulse 94 03/24/2016 8:30 AM SANDWICH HAND Temperature 37.1 C (98.7 F) 03/30/2016 8:03 PM SANDWICH HAND Respiratory Rate 18 03/30/2016 8:03 PM SANDWICH HAND Oxygen Saturation 100% 03/24/2016 4:35 AM SANDWICH HAND Inhaled Oxygen Concentration - - Weight 127.5 kg (281 lb) 03/30/2016 8:03 PM SANDWICH HAND Height 162.6 cm (5' 4 ) 03/30/2016 8:03 PM SANDWICH HAND Body Mass Index 48.23 03/30/2016 8:03 PM SANDWICH HAND Functional Status Functional Status Response Date of [...] 4:48 PM 03/19/2016 6:57 PM Care Teams Pump Servicer Supervisor Relationship Specialty Start Date End Date Frank Ly PA [facility] [place] [address] PCP - General Physician Brasswind Instrument Repairer 12/05/15
--- OUTSIDE RECORDS SUMMARY | 2024-05-10 17:17 | XMS_ITS | Patient Health Summary ---
Author Organization [facility] Reader Address [address] [place] [address] Care Team Providers Care Wrapper Dipper Name Role Phone Frank Ly Primary Care Provider + Note from [facility],non-owned Affiliates and Associated Physician Practices is amultiple site organization consisting of ambulatory clinics and hospital sitesin [place], [place], [place] and [place]. This disclosure is being madepursuant to the Care Everywhere program and may not contain all information available regarding this patient. Last updated 17.[facility] Allergies * Banana(Swelling) * Shellfish Allergy(Swelling) Medications [...] 12/13/2015 Supervision of high risk in second [facility] 12/13/2015 Encounter for ultrasound 12/12/2015 Uterine [...] Comments Blood Pressure 140/78 03/30/2016 8:09 PM ONLINE MERCHANT Pulse 94 03/24/2016 8:30 AM ONLINE MERCHANT Temperature 37.1 C (98.7 F) 03/30/2016 8:03 PM ONLINE MERCHANT Respiratory Rate 18 03/30/2016 8:03 PM ONLINE MERCHANT Oxygen Saturation 100% 03/24/2016 4:35 AM ONLINE MERCHANT Inhaled Oxygen Concentration - - Weight 127.5 kg (281 lb) 03/30/2016 8:03 PM ONLINE MERCHANT Height 162.6 cm (5' 4 ) 03/30/2016 8:03 PM ONLINE MERCHANT Body Mass Index 48.23 03/30/2016 8:03 PM ONLINE MERCHANT Procedures * CBC W AUTO DIFFERENTIAL(Performed 03/30/2016) [...] Performed for Obesity affecting in second trimester ([facility]) * CHLAMYDIA + GC AMPLIFIED PROBE(Performed 03/19/2016) Performed for Obesity affecting in second trimester ([facility]) * CULTURE STREP B(Performed 03/19/2016) Performed for Obesity affecting in second trimester ([facility]) * URINALYSIS REFLEX MICROSCOPIC REFLEX CULTURE(Performed 03/19/2016) Performed for Obesity affecting in second trimester ([facility]) * PROTEIN CREATININE RATIO URINE RANDOM PNL(Performed 03/19/2016) Performed for Obesity affecting in second trimester ([facility]) * CULTURE URINE(Performed 03/19/2016) Performed for Supervision of high risk in second trimester ([facility]) * COMPREHENSIVE METABOLIC PANEL(Performed 03/19/2016) Performed for Obesity affecting in second trimester ([facility]) * BIOPHYSICAL PROFILE W NST(Performed 03/19/2016) Performed for Poor growth affecting management of mother in third trimester, not applicable or unspecified fetus (HCC), Supervision of high risk in second trimester ([facility]) * SONOGRAM - COMPLETE(Performed 03/01/2016) Performed for Supervision of high risk in second trimester ([facility]), Oligohydramnios, antepartum, second trimester, not applicable or unspecified fetus (HCC), Obesity affecting in second trimester (HCC), Marginal placenta previa (HCC), Uterine leiomyoma, unspecified location * SONOGRAM - COMPLETE(Performed 02/02/2016) Performed for Encounter for ultrasound to check growth ([facility]), Supervision of high risk in second trimester (HCC), Oligohydramnios, antepartum, second trimester, not applicable or unspecified fetus (HCC), Marginal placenta previa (HCC), Obesity affecting in second trimester(HCC), Uterine leiomyoma, unspecified location * SONOGRAM - COMPLETE(Performed 01/12/2016) Performed for Encounter for ultrasound to check growth (HCC), Supervision of high risk in second trimester ([facility]) * SONOGRAM - COMPLETE(Performed 12/13/2015) Performed for Encounter for ultrasound ([facility]), Uterine leiomyoma, unspecified location * SECTION (EMERGENCY) Results * (ABNORMAL) CBC W AUTO DIFFERENTIAL (03/30/2016 9:06 PM ONLINE MERCHANT) Only the most recent of6 resultswithin the time period is included. WBC 13.7(H) 4.4 - 10.7 x10E9/L 03/30/2016 9:13 PM ONLINE MERCHANT [facility] WBC Corrected x10E9/L 03/30/2016 9:13 PM ONLINE MERCHANT [facility] RBC 3.00(L) 3.80 - 5.20 x10E12/L 03/30/2016 9:13 PM ONLINE MERCHANT [facility] Hemoglobin 9.2(L) 12.0 - 15.6 gm/dL 03/30/2016 9:13 PM [facility] Hematocrit 27.7(L) 35.9 - 45.5 % 03/30/2016 9:13 PM [facility] MCV 92.3 80.7 - 98.3 fl 03/30/2016 9:13 PM [facility] MCH 30.7 26.7 - 34.0 pg 03/30/2016 9:13 PM [facility] MCHC 33.2 30.8 - 35.9 gm/dL 03/30/2016 9:13 PM [facility] Platelet Count 409 153 - 416 x10E9/L 03/30/2016 9:13 PM [facility] RDW-CV 14.1 12.1 - 14.9 % 03/30/2016 9:13 PM [facility] MPV 8.9(L) 9.4 - 12.9 fl 03/30/2016 9:13 PM [facility] Neutrophils % 71.8 44.0 - 73.0 % 03/30/2016 9:13 PM [facility] Lymphocytes % 20.3 20.0 - 43.0 % 03/30/2016 9:13 PM [facility] Monocytes % 6.2 5.0 - 13.0 % 03/30/2016 9:13 PM [facility] Eosinophils % 1.0 0.0 - 6.0 % 03/30/2016 9:13 PM [facility] Basophils % 0.2 0.0 - 2.0 % 03/30/2016 9:13 PM [facility] Immature Granulocytes 0.5 0 - 1 % 03/30/2016 9:13 PM [facility] Neutrophil Absolute 9.80(H) 2.01 - 7.14 x10E9/L 03/30/2016 9:13 PM [facility] Lymphocytes Absolute 2.77 1.07 - 3.94 x10E9/L 03/30/2016 9:13 PM [facility] Monocytes Absolute 0.85 0.26 - 1.07 x10E9/L 03/30/2016 9:13 PM [facility] Eosinophils Absolute 0.13 0 - 0.47 x10E9/L 03/30/2016 9:13 PM [facility] Basophils Absolute 0.03 0 - 0.08 x10E9/L 03/30/2016 9:13 PM ONLINE MERCHANT [facility] Immature Granulocytes Absolute 0.07(H) 0.00 - 0.06 x10E9/L 03/30/2016 9:13 PM ONLINE MERCHANT [facility] nRBC Auto 0 /100 WBC 03/30/2016 9:13 PM ONLINE MERCHANT [facility] Blood BLOOD SPECIMEN / Unknown Venipuncture / Unknown 03/30/2016 9:06 PM ONLINE MERCHANT 03/30/2016 9:09 PM ONLINE MERCHANT Faby Sellers MD LAB - HEMATOLOGY ORD ERABLES Performing Organization Address [facility]/ZIP Co de Phone Number [facility] [address] [place] [address] * IMAGING/RADIOLOGY/XRAY RESULTS ORDER (03/25/2016 9:51 PM ONLINE MERCHANT) Anatomical Region Laterality Modality Other Narrative 03/25/2016 9:51 PM ONLINE MERCHANT Ordered by an unspecified provider. Scanned Document IMAGING * (ABNORMAL) HGB HCT PANEL (03/24/2016 4:36 AM ONLINE MERCHANT) Only the most recent of2 resultswithin the time period is included. Hemoglobin 8.6(L) 12.0 - 15.6 gm/dL 03/24/2016 4:59 AM ONLINE MERCHANT [facility] Hematocrit 25.3(L) 35.9 - 45.5 % 03/24/2016 4:59 AM [facility] Blood BLOOD SPECIMEN / Unknown Venipuncture / Unknown 03/24/2016 4:36 AM ONLINE MERCHANT 03/24/2016 4:46 AM ONLINE MERCHANT Mary Hamilton MD LAB - HEMATOLOGY OR DERABLES Performing Organization Address [facility]/ZIP Co de Phone Number [facility] [address] [place] [phone] * TRANSFUSE RED BLOOD CELL UNIT(S) (03/23/2016 11:23 PM ONLINE MERCHANT) Noemy Peña MD NURSING - BLOOD PRO D TRANSFUSION * TRANSFUSE RED BLOOD CELL UNIT(S) (03/23/2016 5:48 PM ONLINE MERCHANT) Noemy Peña MD NURSING - BLOOD PRO D TRANSFUSION * PREPARE (CROSSMATCH) RBC UNIT(S), 2 Units (03/23/2016 12:00 PM ONLINE MERCHANT) Only the most recent of2 resultswithin the time period is included. Product Code [id number] [facility] Unit Donor # [id number] S [facility] B[facility] ABO Donor Type AB [facility] Rh Type Unit POS [facility] Crossmatch Interpretation Compatible [facility] Unit Status Transfd [facility] BLO OD [facility] LAB ABO Rh Type Unit ABPOS [facility] C BLOOD B[facility] LAB Donor Unit Expiration Date [facility] Blood Type Barcode 8400 [facility] Product Code [id number] [facility] Unit Donor # [id number] S [facility] BLOOD [facility] LAB ABO Donor Type AB [facility] Rh Type Unit POS [facility] Crossmatch Interpretation Compatible [facility] Unit Status Transfd HC BLO OD BANK LAB ABO Rh Type Unit [facility]BPOS [facility] C BLOOD BANK LAB Donor Unit Expiration Date [facility] Blood Type Barcode 8400 [facility] Blood Bank BLOOD SPECIMEN / Unknown 03/23/2016 12:00 PM ONLINE MERCHANT Noemy Peña MD LAB - BLOOD BANK OR DERABLES [facility] [address] * TYPE + SCREEN PANEL (03/22/2016 1:56 AM ONLINE MERCHANT) Only the most recent of2 resultswithin the time period is included. ABO AB 03/22/2016 3:27 AM ONLINE MERCHANT [facility] Rh Type Positive 03/22/2016 3:27 AM ONLINE MERCHANT [facility] Comment:History check perfor med. No retype required. Antibody Screen Negative 03/22/2016 3:27 AM ONLINE MERCHANT [facility] Blood Bank BLOOD SPECIMEN / Unknown Venipuncture / Unknown 03/22/2016 1:56 AM ONLINE MERCHANT 03/22/2016 2:01 AM ONLINE MERCHANT Sera Juarez MD LAB - BLOOD BANK ORD ERABLES Performing Organization Address [facility]/ZIP Co de Phone Number [facility] [address] [place] [address] * (ABNORMAL) PT PTT PANEL (03/22/2016 1:56 AM ONLINE MERCHANT) Only the most recent of2 resultswithin the time period is included. PT <9.5(L) 9.5 - 11.6 sec 03/22/2016 2:19 AM ONLINE MERCHANT [facility] INR 0.9 0.9 - 1.1 03/22/2016 2:19 AM [facility] PTT 25.1 21.0 - 32.0 sec 03/22/2016 2:19 AM ONLINE MERCHANT [facility] Blood BLOOD SPECIMEN / Unknown Venipuncture / Unknown 03/22/2016 1:56 AM ONLINE MERCHANT 03/22/2016 2:01 AM ONLINE MERCHANT Narrative [facility] - 03/22/2016 2:19 AM ONLINE MERCHANT Conventional Warfarin Anticoagulant Therapy: INR Reference Range: 2.0-3.0 Intensive Warfarin Anticoagulant Therapy: INR Reference Range: 2.5-3.5 Heparin Therapeutic Range for PTT: 47.7 - 68.6 seconds. Imtiaz Fulton MD LAB - COAGULATION OR DERABLES Performing Organization Address [facility] Co de Phone Number [facility] [address] [place] [address] * (ABNORMAL) FIBRINOGEN ACTIVITY (03/22/2016 1:56 AM ONLINE MERCHANT) Only the most recent of2 resultswithin the time period is included. Fibrinogen 424(H) 200 - 400 mg/dL 03/22/2016 2:18 AM ONLINE MERCHANT [facility] Blood BLOOD SPECIMEN / Unknown Venipuncture / Unknown 03/22/2016 1:56 AM ONLINE MERCHANT 03/22/2016 2:01 AM ONLINE MERCHANT Imtiaz Fulton MD LAB - COAGULATION OR DERABLES Performing Organization Address [facility] Co de Phone Number [facility] [address] [place] [address] * (ABNORMAL) BASIC METABOLIC PANEL (CALCIUM TOTAL) (03/21/2016 11:38 PM ONLINE MERCHANT) Glucose 107(H) 74 - 106 mg/dL 03/22/2016 12:18 AM [facility] Sodium 134(L) 136 - 145 mmol/L 03/22/2016 12:18 AM [facility] Potassium 4.8 3.5 - 5.1 mmol/L 03/22/2016 12:18 AM [facility] Chloride 103 98 - 107 mmol/L 03/22/2016 12:18 AM [facility] CO2 21(L) 22 - 31 mmol/L 03/22/2016 12:18 AM [facility] Calcium 6.6(LL) 8.5 - 10.1 mg/dL 03/22/2016 12:18 AM [facility] Anion Gap 10 8 - 16 mmol/L 03/22/2016 12:18 AM [facility] BUN 14 7 - 21 mg/dL 03/22/2016 12:18 AM [facility] Creatinine 0.91 0.50 - 1.30 mg/dL 03/22/2016 12:18 AM [facility] eGFR by MDRD >60 >60 mL/min/1.7 3m2 03/22/2016 12:18 AM [facility] eGFR by MDRD >60 >60 mL/min/1.7 3m2 03/22/2016 12:18 AM [facility] Blood BLOOD SPECIMEN / Unknown Venipuncture / Unknown 03/21/2016 11:38 PM ONLINE MERCHANT 03/21/2016 11:59 PM ONLINE MERCHANT Maral Barnes MD LAB - CHEMISTRY TIANA VAZ [facility] Organization Address City/State/ZIP Co de Phone Number [facility] [address] [place] [address] * NEURAXIAL BLOCK (03/21/2016 6:37 AM ONLINE MERCHANT) Narrative Arturo Mcguire DO - 03/21/2016 6:37 AM ONLINE MERCHANT Keyla Martinez APRN-JADA 03/20/2016 10:46 PM NEURAXIAL [...] Mcguire Notes: X 2 attempt P lacey IRON CARRIER pt not cooperative and moving with contractions redirected Continuous FHT per nurses. X 1 attempt using tuohy 18 g Finding epidural space and long 25 g spinal needle through toughy per Dr. Mcguire FHT 60's prior to SAB completion. Dr. Shin in [place] Arturo Mcguire DO GENERAL ANESTHESIA O RDERABLES * (ABNORMAL) BLOOD GASES CORD DELMER (ISTAT) (03/20/2016 10:43 PM ONLINE MERCHANT) pH Cord Venous POCT 7.06(LL) 7.28 - 7.40 pH 03/20/2016 10:56 PM [facility] pCO2 Cord Venous POCT 72(H) 35 - 45 mmHg 03/20/2016 10:56 PM [facility] pO2 Cord Venous POCT 6(L) 22 - 33 mmHg 03/20/2016 10:56 PM [facility] HCO3 Cord Arterial POCT 21(L) 22 - 24 mmol/L 03/20/2016 10:56 PM [facility] BE Cord Venous POCT Calc -12(L) -6.4 - 1.6 mmol/L 03/20/2016 10:56 PM [facility] TCO2 Cord Venous POCT 23 22 - 30 mmol/L 03/20/2016 10:56 PM [facility] O2 Saturation % Cord Venous Calc POCT 3 % 03/20/2016 10:56 PM [facility] Site CORD DELMER 03/20/2016 10:56 PM [facility] Sample iSTAT CORD V 03/20/2016 10:56 PM [facility] Blood CORD BLOOD SPECIMEN / Unknown 03/20/2016 10:43 PM ONLINE MERCHANT 03/20/2016 10:56 PM ONLINE MERCHANT Brian Lang MD LAB - POINT OF CARE ORDERABLES [facility] [address] [place] [address] * (ABNORMAL) BLOOD GASES CORD ART (ISTAT) (03/20/2016 10:35 PM ONLINE MERCHANT) pH Cord Arterial POCT 7.02(LL) 7.20 - 7.34 pH 03/20/2016 10:56 PM [facility] pCO2 Cord Arterial POCT 79.4(HH) 45 - 55 mmHg 03/20/2016 10:56 PM [facility] pO2 Cord Arterial POCT <5(LL) 12 - 25 mmHg 03/20/2016 10:56 PM [facility] HCO3 Cord Arterial POCT 20.7(L) 22 - 24 mmol/L 03/20/2016 10:56 PM [facility] BE Cord Arterial POCT -12(L) -2.9 - 8.3 mmol/L 03/20/2016 10:56 PM [facility] TCO2 Cord Arterial POCT 23 mmol/L 03/20/2016 10:56 PM [facility] O2 Saturation Cord Art % Calc POCT % 03/20/2016 10:56 PM [facility] Site CORD ART 03/20/2016 10:56 PM [facility] Sample iSTAT CORD A 03/20/2016 10:56 PM [facility] Blood CORD BLOOD SPECIMEN / Unknown 03/20/2016 10:35 PM ONLINE MERCHANT 03/20/2016 10:56 PM ONLINE MERCHANT Brian Lang MD LAB - POINT OF CARE ORDERABLES [facility] [address] [place] [address] * GROSS + MICRO EXAM (STL) (03/20/2016 10:35 PM ONLINE MERCHANT) Case Report Surgical Pathology Report Case: [id number] Authorizing Provider: Kary Brunner MD Collected: 03/20/2016 10:35 PM Ordering Location: [facility] Received: 03/22/2016 07:22 AM Pathologist: Grant Reeves MD Specimen: Placenta 03/25/2016 1:43 PM ONLINE MERCHANT [facility] Final Diagnosis 1. Placenta, delivery: -- Third trimester placenta, 380 grams -- Three-vessel umbilical cord -- Unremarkable membranes FAUSTINO/merly 03/25/2016 1:43 PM ONLINE MERCHANT [facility] Gross Description Received in formalin in [...] than 5% of the total placental parenchyma. Brancher sections are submitted as follows: A1 - Membranes and umbilical cord A2 - and maternal surface A3 - Maternal surface DYT/dak 03/25/2016 1:43 PM ONLINE MERCHANT [facility] Microscopic Description Sections of the umbilical cord show three vessels with no significant pathologic diagnoses. No evidence of vasculitis or funisitis is seen. Sections of the membranes show no significant pathologic diagnoses. No chorioamnionitis is seen. Meconium is not identified. Sections of the placental disc show maturing chorionic villi with no evidence of hemorrhage or infarction. FAUSTINO/merly 03/25/2016 1:43 PM ONLINE MERCHANT [facility] Disclaimer All histochemical and/or immunohistochemical results are interpreted with controls that demonstrate appropriate staining reactions before reporting results. Note on use of immunocytochemistry reagents: This test was developed and its performance characteristic determined by [facility], Department of Laboratory Medicine. It has not been cleared or approved by the U.S. Food and Drug Administration (FDA). The FDA has determined that such clearance or approval is not necessary. The test is used for clinical purpose. It should not be regarded as investigational or for research. This laboratory is certified to perform high complexity testing. 03/25/2016 1:43 PM ONLINE MERCHANT [facility] Embedded Images 03/25/2016 1:43 PM ONLINE MERCHANT [facility] Pathology/Cytolo gy ENTIRE PLACENTA / Unknown 03/20/2016 10:35 PM ONLINE MERCHANT 03/22/2016 7:22 AM ONLINE MERCHANT Kary Brunner MD LAB - PATHOLOGY/CY TOLOGY ORDERABLES Performing Organization Address City/State/[facility] Co de Phone Number [facility] [address] [place] [address] * IP CONSULT TO NEONATOLOGY (03/20/2016 11:01 AM ONLINE MERCHANT) Narrative Procedure Note Tika Everett MD - [...] or use illicit drugs. Family History: non-contributory Naturalization Examiner: TBD Feeding: discussed, and patient is agreeable to pumping. 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: Discussed effects on feeding ability, poorregulation of [...] * BLOOD TYPE VERIFICATION (03/19/2016 8:21 PM ONLINE MERCHANT) ABO AB 03/19/2016 9:30 PM ONLINE MERCHANT [facility] Rh Type Positive 03/19/2016 9:30 PM ONLINE MERCHANT [facility] Blood Bank BLOOD SPECIMEN / Unknown 03/19/2016 8:21 PM ONLINE MERCHANT 03/19/2016 8:57 PM ONLINE MERCHANT Brian Lang MD LAB - BLOOD BANK ORD ERABLES [facility] [address] * CHLAMYDIA + GC AMPLIFIED PROBE (03/19/2016 6:23 PM ONLINE MERCHANT) Chlamydia Amplified Probe Negative Negative 03/20/2016 9:38 AM ONLINE MERCHANT [facility] GC Amplified Probe Negative Negative 03/20/2016 9:38 AM [facility] Microbiology ENTIRE ENDOCERVIX / Unknown Collection / Unknown 03/19/2016 6:23 PM ONLINE MERCHANT 03/19/2016 6:28 PM ONLINE MERCHANT Narrative [facility] - 03/20/2016 9:38 AM ONLINE MERCHANT Results based on detection/no detection of ribosomal RNA by amplified method. Imtiaz Fulton MD LAB - MICROBIOLOGY O SAVANAH [facility] [address] [place] [address], [facility] [phone] * CULTURE STREP B (03/19/2016 6:23 PM ONLINE MERCHANT) Culture Negative for beta-hemolytic Streptococcus Group B RUSSELL 03/23/2016 1:34 PM ONLINE MERCHANT [facility] Microbiology MISCELLANEOUS SAMPLES / Unknown Collection / Unknown 03/19/2016 6:23 PM ONLINE MERCHANT 03/19/2016 6:28 PM ONLINE MERCHANT Imtiaz Fulton MD LAB - MICROBIOLOGY O SAVANAH Performing Organization Address [facility] Co de Phone Number [facility] [address] [place] [address], [facility] [phone] * (ABNORMAL) URINALYSIS ROUTINE W/REFLEX TO CULTURE (03/19/2016 5:42 PM ONLINE MERCHANT) Color UA Yellow Straw, Yellow, Dark Yellow 03/19/2016 5:58 PM ONLINE MERCHANT [facility] Clarity UA Cloudy 03/19/2016 5:58 PM ONLINE MERCHANT [facility] Specific [place] UA 1.018 1.005 - 1.030 03/19/2016 5:58 PM ONLINE MERCHANT [facility] pH UA 6.0 5.0 - 8.0 pH 03/19/2016 5:58 PM ONLINE MERCHANT [facility] Protein UA Trace(A) Negative 03/19/2016 5:58 PM ONLINE MERCHANT [facility] Blood UA Negative Negative 03/19/2016 5:58 PM ONLINE MERCHANT [facility] Leukocyte UA Negative Negative 03/19/2016 5:58 PM ONLINE MERCHANT [facility] Nitrite UA Negative Negative 03/19/2016 5:58 PM ONLINE MERCHANT [facility] Glucose UA Negative Negative 03/19/2016 5:58 PM ONLINE MERCHANT [facility] Ketone UA Negative Negative 03/19/2016 5:58 PM ONLINE MERCHANT [facility] Bilirubin UA Negative Negative 03/19/2016 5:58 PM ONLINE MERCHANT [facility] Urobilinogen UA 0.2 0.1 - 1.0 EU/dL 03/19/2016 5:58 PM ONLINE MERCHANT [facility] WBC UA Auto 5-10(A) 0-2, 2-5 # /hpf 03/19/2016 5:58 PM ONLINE MERCHANT [facility] RBC UA Auto 2-5 0-2, 2-5 # /hpf 03/19/2016 5:58 PM ONLINE MERCHANT [facility] Epithelial Cell UA Auto 10-20(A) 0-2, 2-5 # /hpf 03/19/2016 5:58 PM ONLINE MERCHANT [facility] Bacteria UA Auto 1+(A) None seen 03/19/2016 5:58 PM ONLINE MERCHANT [facility] Hyaline Casts UA Auto 2-5(A) 0 - 2 #/lpf 03/19/2016 5:58 PM ONLINE MERCHANT [facility] Reflex Status Culture not indicated 03/19/2016 5:58 PM ONLINE MERCHANT [facility] Urine URINE SPECIMEN OBTAINED BY CLEAN CATCH PROCEDURE / Unknown Collection / Unknown 03/19/2016 5:42 PM ONLINE MERCHANT 03/19/2016 5:49 PM ONLINE MERCHANT Tika Valero MD LAB - URINALYSIS ORD ERABLES Performing Organization Address City/[facility]/ZIP Co de Phone Number [facility] [address] [place] [address] * CULTURE URINE (03/19/2016 5:42 PM ONLINE MERCHANT) Culture 10,000-50,000 CFU/mL urogenital tra RUSSELL 03/21/2016 9:10 AM [facility] Urine URINE SPECIMEN OBTAINED BY CLEAN CATCH PROCEDURE / Unknown Collection / Unknown 03/19/2016 5:42 PM ONLINE MERCHANT 03/19/2016 5:49 PM ONLINE MERCHANT Tika Valero MD LAB - MICROBIOLOGY O RDERABLES [facility] [address] [place], [address] [phone] * PROTEIN CREATININE RATIO URINE RANDOM PNL (03/19/2016 5:42 PM ONLINE MERCHANT) Protein Urine 33.0 mg/dL 03/19/2016 6:26 PM ONLINE [facility] Creatinine Urine 120 mg/dL 03/19/2016 6:26 PM [facility] Protein/Creatin ine Ratio Urine 0.28 03/19/2016 6:26 PM [facility] Urine URINE SPECIMEN OBTAINED BY CLEAN CATCH PROCEDURE / Unknown Collection / Unknown 03/19/2016 5:42 PM ONLINE MERCHANT 03/19/2016 5:[address] [facility] Tika Valero MD LAB - URINE CHEMISTR Y ORDERABLES [facility] [address] [place] [address] * (ABNORMAL) COMPREHENSIVE METABOLIC PANEL (03/19/2016 5:[address] [facility]) Glucose 66(L) 74 - 106 mg/dL 03/19/2016 6:12 PM [facility] Sodium 139 136 - 145 mmol/L 03/19/2016 6:12 PM [facility] Potassium 4.3 3.5 - 5.1 mmol/L 03/19/2016 6:12 PM [facility] Chloride 108(H) 98 - 107 mmol/L 03/19/2016 6:12 PM [facility] CO2 22 22 - 31 mmol/L 03/19/2016 6:12 PM [facility] Calcium 9.5 8.5 - 10.1 mg/dL 03/19/2016 6:12 PM [facility] Anion Gap 9 8 - 16 mmol/L 03/19/2016 6:12 PM [facility] BUN 10 7 - 21 mg/dL 03/19/2016 6:12 PM [facility] Creatinine 0.60 0.50 - 1.30 mg/dL 03/19/2016 6:12 PM [facility] Alkaline Phosphatase 341(H) 38 - 126 U/L 03/19/2016 6:12 PM [facility] ALT 12(L) 13 - 61 U/L 03/19/2016 6:12 PM [facility] AST 14 5 - 40 U/L 03/19/2016 6:12 PM [facility] Protein Total 7.0 6.4 - 8.2 gm/dL 03/19/2016 6:12 PM [facility] Albumin 2.7(L) 3.4 - 5.0 gm/dL 03/19/2016 6:12 PM ONLINE MERCHANT [facility] Bilirubin Total 0.2 0.2 - 1.0 mg/dL 03/19/2016 6:12 PM ONLINE MERCHANT [facility] eGFR by MDRD >60 >60 mL/min/1.7 3m2 03/19/2016 6:12 PM ONLINE MERCHANT [facility] eGFR by MDRD >60 >60 mL/min/1.7 3m2 03/19/2016 6:12 PM ONLINE MERCHANT [facility] Blood BLOOD SPECIMEN / Unknown Venipuncture / Unknown 03/19/2016 5:41 PM ONLINE MERCHANT 03/19/2016 5:49 PM ONLINE MERCHANT Tika Valero MD LAB - CHEMISTRY TIANA VAZ [facility] Organization Address City/State/ZIP Co de Phone Number [facility] [address] [place] [address] * BIOPHYSICAL PROFILE W NST (03/19/2016 11:48 AM ONLINE MERCHANT) Anatomical Region Laterality Modality Other 03/19/2016 11:4 8 AM ONLINE MERCHANT Narrative 03/19/2016 1:[address] [facility] PHONE: FAX: Pat. Name: WESTON ROSS Pat. 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/01) Class III obesity Asthma Uterine myomas MEASUREMENTS & AGE GROWTH EVALUATION Measurement GA Range Srce %for GA Ratios ----- ---- ------- BPD 7.9 cm 31w4d (15a4v-03b1b) Hadl BPD 13% FL/BPD 0.77 (0.71 - 0.87) HC 27.5 cm 30w0d (38q5h-01g4z) Hadl HC <05 FL/AC 0.24 (0.20 - 0.24) AC 25.6 cm 29w5d (42g1s-01h0e) Hadl AC <05 HC/AC 1.07 (0.94 - 1.13) FL 6.0 cm 31w3d (08w6f-88x8b) Hadl FL 9% CI 0.83 (0.70 - 0.86) GA for sonogram 30w3d (73b8r-94f3f) Weight Estimate: based on (BPD,HC,AC,FL) Hadlock Weight: 1577 gm (8599-5687) Hadlo : 3lbs, 7oz Normal: 2408 gm (3583-0831) Hadlo Wt% <10 for 34w1d Heart Rate: [...] FHR monitoring and evaluation for preeclampsia at [facility]. 2) Repeat BPP within 24 hours 3) Repeat Dopplers within 1 week Thank you for allowing us the opportunity to care for your patient. Michelle Sauer MD <Electronic Signature> 03/19/2016 01:38pm Michelle Sauer MD [facility] ORDERABLES * SONOGRAM - COMPLETE (03/01/2016 11:15 AM ONLINE MERCHANT) Only the most recent of4 resultswithin the time period is included. Anatomical Region Laterality Modality Other 03/01/2016 11:1 5 AM ONLINE MERCHANT Narrative 03/01/2016 12:53 PM ONLINE MERCHANT [facility] PHONE: FAX: Pat. Name: WESTON ROSS Pat. No: [id number] Study Date: 03/01/2016 11:15am , Age: 04 1980, 35 Pregnancies: 3, Para 1, Ab 1 Height: 64 in Weight: 268 lb LMP: Unknown GA by 1st: 31w4d GA by US: 28w6d GA Selected: 31w4d (From Known E) JOYCELYN: 04/29/2016 Referring MD: Tacho Munoz MD Drafting Layout Man: Tesha Gamez RDMS BMI: 46 Hist/Ind: Class III obesity Asthma Uterine myomas Low-lying placenta MEASUREMENTS & AGE GROWTH EVALUATION Measurement GA Range Srce %for GA Ratios ----- ---- ------- BPD 7.7 cm 30w5d (81u5v-97s8u) Hadl BPD 38% FL/BPD 0.76 (0.71 - 0.87) HC 26.6 cm 29w0d (92q7x-55j6y) Hadl HC <05 FL/AC 0.25 (0.20 - 0.24* AC 23.7 cm 28w0d (02c5f-50v9y) Hadl AC <05 HC/AC 1.12 (0.96 - 1.15) FL 5.8 cm 30w3d (98z9v-21f9c) Hadl FL 32% CI 0.86 (0.70 - 0.86* HL 5.1 cm 29w6d (83f1x-19v2r) Jevon HL 21% GA for sonogram 28w6d (26x2z-02v8m) Weight Estimate: based on (HC,AC,FL) Hadlock Weight: 1312 gm (8299-0031) Hadlo : 2lbs, 14oz Normal: 1866 gm (4428-8003) Hadlo Wt% <10 for 31w4d Heart Rate: [...] <Electronic Signature> 03/01/2016 12:53pm Addis Sears MD [facility] ORDERABLES Care Teams Wrapper Dipper Relationship Specialty Start Date End Date Frank Ly PA [address] [place] [id number] PCP - General Physician Bender Machine 12/05/15
--- OUTSIDE RECORDS SUMMARY | 2024-05-10 17:17 | XMS_ITS | Clinical Summary ---
Author Organization [facility] Address [address] [place] [address] Care Team Providers Care Police And Fire Dispatcher Name Role Phone Frank Ly Primary Care Provider + Source Comments [facility],non-owned Affiliates and Associated Physician Practices is amultiple site organization consisting of ambulatory clinics and hospital sitesin [place], [place], [place] and [place]. This disclosure is being madepursuant to the Care Everywhere program and may not contain all information available regarding this patient. Last updated 17.[facility] Allergies Active Allergy Reactions Criticality Noted Date [...] 12/13/2015 Supervision of high risk in [facility] 12/13/2015 Encounter for ultrasound 12/12/2015 Uterine [...] Comments Blood Pressure 140/78 03/30/2016 8:09 PM TISSUE REWINDER Pulse 94 03/24/2016 8:30 AM TISSUE REWINDER Temperature 37.1 C (98.7 F) 03/30/2016 8:03 PM TISSUE REWINDER Respiratory Rate 18 03/30/2016 8:03 PM TISSUE REWINDER Oxygen Saturation 100% 03/24/2016 4:35 AM TISSUE REWINDER Inhaled Oxygen Concentration - - Weight 127.5 kg (281 lb) 03/30/2016 8:03 PM TISSUE REWINDER Height 162.6 cm (5' 4 ) 03/30/2016 8:03 PM TISSUE REWINDER Body Mass Index 48.23 03/30/2016 8:03 PM TISSUE REWINDER Plan of Treatment Health Maintenance Due Date [...] 4:48 PM 03/19/2016 6:57 PM Care Teams Police And Fire Dispatcher Relationship Specialty Start Date End Date Frank Ly PA [address] [place] [id number] PCP - General Physician Doctor'S Assistant 12/05/15
--- OUTSIDE RECORDS SUMMARY | 2024-05-10 17:17 | XMS_ITS | CONTINUITY OF CARE DOCUMENT ---
Author Name kenyetta kumari Address Unknown Organization [facility] Address [address] [place] [address] Phone [phone] Care Team Providers Care Rear Load Truck Driver Name Role Phone Tanner Shepard MD Unavailable [phone] Tanner Shepard MD Unavailable [phone] INSURANCE PROVIDERS Payer name Policy type / Coverage type [employer] Medicaid [id number]
[2024-05-10 17:37] VITALS: BP 172/95; PULSE 84; RESP 18; TEMP 36.8; O2SAT 100
--- NOTE | 2024-05-10 22:31 | PC.NURSE ---
Pt called for room placement @ 6002. No answer.
== END 2024-05-10 22:30 | disposition left against medical advice (07) ==
PROVIDERS: Emergency Medicine; Emergency Provider Registered Nurse
DX: R07.89 Other chest pain (principal); I10 Essential (primary) hypertension; J45.909 Unspecified asthma, uncomplicated
CPT/HCPCS: 36415; 70450; 71046; 80053; 83690; 83880; 84484; 85025; 85610; 85730; 93005; 99284